=== PATIENT | female | born 1930 | race Caucasian/White ===

== ENCOUNTER 2016-09-16 13:24 | Inpatient (IN) | payer OTHER, BC ==
[~2016-09-16] VITALS: Ht 162.6 cm; Wt 58.7 kg
--- NOTE | ~2016-09-16 | H ---
[facility] [place] [address] HISTORY AND PHYSICAL Name: NOVA MAURICE Room #: 422-P [facility] IN M.R.#: [id number] Admission: 09/16/16 Attend Phys: Thony Del Rio MD Discharge: Date of : 31 Report #: [id number] THIS REPORT FOR: //name// CC: Arsenio Del Rio DATE OF SERVICE: 09/16/2016 DATE OF SERVICE: 09/16/2016 CHIEF COMPLAINT: Abdominal pain. HISTORY OF PRESENT ILLNESS: The patient is an 86-year-old female, who I have actually seen in the past. She reports recent diarrhea and the left lower quadrant abdominal pain. She does have a history of diverticulitis. She does live alone and also has celiac disease. She has been more problems with her pain and diarrhea in the last few days. PAST MEDICAL HISTORY: Significant for: 1. Diverticulitis. 2. Osteoporosis. 3. Depression. 4. Episode of atrial fibrillation. 5. Hypertension. 6. Celiac. 7. DJD. 8. Chronic renal insufficiency. 9. Hypertension. MEDICATIONS: Include losartan 50 mg a day, atenolol 50 mg a day, diltiazem ER 120 mg b.i.d., calcium daily, multivitamin daily, Percocet p.r.n. pain. SOCIAL HISTORY: She is a nonsmoker. She does drink alcohol occasionally. No recreational drugs. REVIEW OF SYSTEMS: CONSTITUTIONAL: No fever or chills. HEENT: No headaches or visual changes. CHEST: No shortness of breath or cough. GASTROINTESTINAL: No nausea, but she does have the abdominal pain. GENITOURINARY: No burning or frequency. PHYSICAL EXAMINATION: VITAL SIGNS: In the ER, blood pressure was 117/82, pulse was 66, respiratory rate 17. She is afebrile. GENERAL: She is awake and alert, in no acute distress. Her mucous membranes [facility] [address] [place] [address] HISTORY AND PHYSICAL Name: NOVA MAURICE Room #: 422-P [facility] IN [facility]#: [id number] Admission: 09/16/16 Attend Phys: Thony Del Rio MD Discharge: Date of : 31 Report #: [id number] are moist. NECK: Supple, without adenopathy, thyromegaly or bruits. CHEST: Clear to auscultation. CARDIOVASCULAR: Regular , no murmur. ABDOMEN: Soft. She is tender in the left lower quadrant. No rebound or guarding. Bowel sounds are active. EXTREMITIES: Show no edema. Pulses are intact. SKIN: Intact. LABORATORY DATA: Sodium 130, potassium 5.0, chloride 95, bicarb 27, BUN 8, creatinine is 1.2, glucose is 84, AST 41, ALT 22, alkaline phosphatase is 89. WBCs 11.0, hemoglobin 9.0, hematocrit 27.7, platelet count 355, 75 segs, 12 lymphs. Urinalysis is negative. CT scan of the abdomen shows diverticulitis, no masses, no perforation. ASSESSMENT: Diverticulitis, administered on IV antibiotics, IV fluids, IV pain meds. PLAN: We will not consult GI at this time. She has will certainly reevaluate if she develops worsening of symptoms. <ELECTRONICALLY SIGNED> By: Thony Del Rio MD 09/17/16 1307 2034 [id number] Thony Del Rio MD /nt
[~2016-09-16 13:24] MED LIST: ADULT LOW DOSE81 MG PO; ARICEPT 5 MG TAB5 MG PO; ARICEPT10 MG PO; ATENOLOL 100MG100 M2 PO; ATENOLOL 100MG100 MG PO; ATENOLOL 25 MG25 M1 PO; ATENOLOL PO; BENICAR; BENICAR HCT 401 EAC1 PO; BENICAR40 MG PO; CALCIUM OYSTER500 MG PO; CELEXA 20 MG TA20 M1 PO; CENTRUM SILVER1 EAC1 PO; CENTRUM SILVER1 EAC4 PO; CIPRO500 MG PO; CIPROFLOXACIN500 M3 PO; COLESTID1 GM PO; COMPAZINE PO; COZAAR 50 MG TA50 M2 PO; DILTIAZEM ER120 M1 PO; FLAGYL500 MG PO; FLOMAX PO; GLUCOSAMINE &1 EAC1 PO; GLUCOSAMINE SU500 MG PO; HM ACETAMINOPH1 EAC1 PO; IRON OR; IRON325 PO; LIBRAX PO; LOMOTIL TABLET1 EACH PO; MOBIC15 MG PO; NATURAL CALCIU500 M1 PO; NORCO 5-325 TA1 EACH PO; OXYBUTYNIN 5 MG5 M1 PO; PERCOCET PO; PHENERGAN 25 MG25 M1 PO; PRADAXA75 MG PO; PREDNISONE 10 M10 M1 PO; PREDNISONE 5 MG5 M1 OR; PREVALITE PACKE1 PKT PO; REMERON15 MG PO; SONATA10 MG PO; TENORMIN PO; TOPROL XL50 MG PO; TRAMADOL 50 MG50 MG PO; TYLENOL P.M. E1 EAC3 PO; ULTRAM 50MG TAB50 MG PO; XARELTO20 MG PO; ZOLOFT 50 MG TA50 M1 PO
[2016-09-16 13:25] VITALS: BP 117/82
[2016-09-16 14:51] LABS: ALBUMIN 2.9 g/dL (3.4-5.0); CALCIUM 8.7 mg/dL (8.5-10.1); CREATININE 1.2 mg/dL (0.6-1.3); TOTAL BILIRUBIN 0.4 mg/dL (<0.1-1.0); TOTAL PROTEIN 6.6 g/dL (6.4-8.2)
[2016-09-16 15:14] LABS: ABSOLUTE NEUTROPHILS 8.3 thou/uL (1.4-8.2); BASOPHILS 0.6 % (0.0-2.0); EOSINOPHILS 0.9 % (0.0-3.0); HEMATOCRIT 27.7 % (37.0-47.0); LYMPHOCYTES 12.6 % (24.0-44.0); MCH 25.8 pg (26.0-34.0); MCHC 32.3 % (28.0-37.0); MCV 79.9 fL (80.0-100.0); MONOCYTES 10.2 % (1.0-8.0); PLATELET COUNT 355 thou/uL (150-400); POLYS 75.7 % (36.0-66.0); RBC 3.47 mil/uL (4.20-5.00)
[2016-09-16 15:16] LABS: MANUAL DIFF NO
[2016-09-16 16:07] LABS: URINE BILIRUBIN NEGATIVE (Negative); URINE BLOOD NEGATIVE (Negative); URINE COLOR YELLOW; URINE GLUCOSE-RANDOM* NEGATIVE (Negative); URINE KETONES NEGATIVE (Negative); URINE LEUKOCYTES-REFLEX NEGATIVE (Negative); URINE PROTEIN (DIPSTICK) NEGATIVE (Negative); URINE UROBILINOGEN 0.2 E.U./dl (0.2-1.0)
[2016-09-16 17:34] VITALS: BP 168/66
[2016-09-16 17:50] VITALS: BP 146/65
[2016-09-16 20:00] VITALS: BP 135/70
[2016-09-17 04:30] VITALS: BP 174/74
[2016-09-17 06:47] LABS: HEMATOCRIT 30.2 % (37.0-47.0); HEMOGLOBIN 9.6 gm/dL (12.0-15.0); MCH 26.1 pg (26.0-34.0); MCV 81.5 fL (80.0-100.0); RBC 3.7 mil/uL (4.20-5.00); RDW 17.7 % (10.5-14.5); WBC 8.4 thou/uL (4.0-11.0)
[2016-09-17 07:05] LABS: CALCIUM 8.4 mg/dL (8.5-10.1)
[2016-09-17 07:39] VITALS: BP 195/76
[2016-09-17 15:48] VITALS: BP 156/75
[2016-09-17 22:00] VITALS: BP 131/62
[2016-09-18 04:44] LABS: HEMATOCRIT 29.3 % (37.0-47.0); HEMOGLOBIN 9.4 gm/dL (12.0-15.0); MCH 26.3 pg (26.0-34.0); MCHC 32.2 % (28.0-37.0); MCV 81.5 fL (80.0-100.0); RBC 3.59 mil/uL (4.20-5.00); WBC 7.9 thou/uL (4.0-11.0)
[2016-09-18 04:50] LABS: CALCIUM 8.6 mg/dL (8.5-10.1); CREATININE 1.1 mg/dL (0.6-1.3); POTASSIUM 4.5 mmol/L (3.5-5.1)
[2016-09-18 05:00] VITALS: BP 166/89
[2016-09-18 08:48] VITALS: BP 131/74
[2016-09-18 14:38] VITALS: BP 131/74
[2016-09-18] MEDS ORDERED: CIPRO500 MG PO (15:26)
[2016-09-18] MEDS ORDERED: FLAGYL500 MG PO (15:26)
[2016-09-18 15:44] VITALS: BP 131/74
== END 2016-09-18 18:14 | disposition home health service (06) | DRG 392 ==
LOC: ER 13:24 → EROBS 16:47 → 4E 16:47
PROVIDERS: Emergency Medicine; Family Medicine
DX: K57.92 Diverticulitis of intestine, part unspecified, without perforation or abscess without bleeding (principal); I48.91 Unspecified atrial fibrillation; M81.0 Age-related osteoporosis without current pathological fracture; F32.9 Major depressive disorder, single episode, unspecified; I12.9 Hypertensive chronic kidney disease with stage 1 through stage 4 chronic kidney disease, or unspecified chronic kidney disease; M17.10 Unilateral primary osteoarthritis, unspecified knee; N18.9 Chronic kidney disease, unspecified; D63.8 Anemia in other chronic diseases classified elsewhere; Z96.653 Presence of artificial knee joint, bilateral; Z98.42 Cataract extraction status, left eye; Z90.49 Acquired absence of other specified parts of digestive tract; Z87.891 Personal history of nicotine dependence; Z87.81 Personal history of (healed) traumatic fracture; Z98.41 Cataract extraction status, right eye; Z90.710 Acquired absence of both cervix and uterus; Z98.890 Other specified postprocedural states; Z88.6 Allergy status to analgesic agent; Z91.02 Food additives allergy status; Z28.21 Immunization not carried out because of patient refusal
CPT/HCPCS: 10183

== ENCOUNTER 2016-09-21 12:15 | Inpatient (IN) | payer OTHER, BC ==
[~2016-09-21] VITALS: Ht 162.6 cm; Wt 59.0 kg
--- NOTE | ~2016-09-21 | D ---
[facility] [place] [address] DISCHARGE SUMMARY Name: JOSAFATNOVA M Room #: 408-P [facility] IN M.R.#: [id number] Admission: 09/21/16 Attend Phys: Cyndy Humphries MD Discharge: 09/23/16 Date of : 31 Report #: [id number] THIS REPORT FOR: //name// CC: Arsenio Humphries DATE OF SERVICE: 09/23/2016 DISCHARGE DIAGNOSES: 1. Acute kidney injury secondary to volume depletion. 2. Loose stool, now resolved. 3. Recent history of acute diverticulitis. 4. Atrial fibrillation. 5. Hyponatremia secondary to above, now improved. 6. Hypertension. CONSULTS: None. PROCEDURES: None. HOSPITAL COURSE: The patient is an 86-year-old female known to me from recent hospitalization at which time she was treated for acute diverticulitis, presented to the ER secondary to weakness and loose stools. Please see details of admission on September 21. The patient was found to be dehydrated with elevated creatinine. She reported having some loose stool in addition to her poor intake. She denied any nausea, vomiting, abdominal pain. She was admitted and started on fluid hydration. Over the course of 22-48 hours, her symptoms improved. Her renal function improved and her sodium also improved. She had no further loose stools as well. It is suspected that by and large she has got poor intake. on discharge. DISCHARGE DISPOSITION: To home. DISCHARGE PHYSICAL EXAMINATION: VITAL SIGNS: Temperature 98, pulse 89, blood pressure ____, O2 sat 98% on room air. GENERAL: She is awake, alert, answering questions appropriately, no acute respiratory distress. HEENT AND NECK: Normocephalic, atraumatic. Neck is supple. Pupils equal. CARDIOVASCULAR: Regular rate and rhythm. No murmurs. LUNGS: Clear to auscultation bilaterally. No crackles or wheeze. ABDOMEN: Soft, no distention or tenderness. EXTREMITIES: No edema. NEUROLOGIC: Nonfocal. The patient will also be going home with home health. DISCHARGE MEDICATIONS: Aspirin 81 daily, atenolol 50 daily, calcium 500 daily, [address] [address] DISCHARGE SUMMARY Name: NOVA MAURCIE Room #: 408-P [facility] IN M.R.#: [id number] Admission: 09/21/16 Attend Phys: Cyndy Humphries MD Discharge: 09/23/16 Date of : 31 Report #: [id number] diltiazem ER 120 b.i.d., Aricept 10 daily, glucosamine chondroitin 1 daily, Cozaar ____, Centrum Silver 1 daily, oxybutynin 5 mg b.i.d., Percocet p.r.n. She will resume her Flagyl and Cipro as previously prescribed. DIET: Regular diet. ACTIVITY: As tolerated. FOLLOWUP: Follow up with primary care in 1 week and again I did encourage her to eat and drink more on a daily basis. <ELECTRONICALLY SIGNED> By: Cyndy Humphries MD 10/14/162009 1137 1341 Cyndy Humphries MD /nt
--- NOTE | ~2016-09-21 | H ---
[facility] [place] [address] HISTORY AND PHYSICAL Name: NOVA MAURICE Julio Room #: 408-P [facility] IN M.R.#: [id number] Admission: 09/21/16 Attend Phys: Cyndy Humphries MD Discharge: 09/23/16 Date of : 31 Report #: [id number] THIS REPORT FOR: //name// CC: Arsenio Fulton PRIMARY DOCTOR: Arsenio Spann DO CHIEF COMPLAINT: Loose stools and weakness. HISTORY OF PRESENT ILLNESS: The patient is an 86-year-old female, recently discharged by myself on the , which was 3 days ago, at which time she was treated for diverticulitis with Cipro and Flagyl, presents back to the ER secondary to loose stools and weakness. She indicates that when left, she was doing fairly well up until this morning. She woke up and has had 5 soft brown stools and has had progressive weakness. She denies any nausea, vomiting, or abdominal pain and overall, her abdominal issues are better except for loose stools that started this morning. She denies any blood or mucous in the stool. She states that this is not watery, but just soft and brown. As stated, she has had 5 episodes this morning. She has also had poor intake despite not having any nausea, vomiting, or pain. She is uncertain as to whether this may be related the antibiotics or not. This morning, she was still weak, the nurse that came to visit her decided to call EMS. Since discharge, she has had home health care services provided by her assisted living. Workup in the ER revealed that she has sodium of 129 and creatinine is elevated at 1.5. On discharge her creatinine was 1.1. She denies any other complaints. She did not have any fever or chills. PAST MEDICAL HISTORY: She has had a history of AFib, on Cardizem, but not on chronic anticoagulation; recent treatment for diverticulitis, osteoporosis, depression, hypertension, celiac disease, degenerative joint disease, chronic renal deficiency, hypertension, daily alcohol intake, and cataracts. PAST SURGICAL HISTORY: She has had bilateral cataract surgery, hysterectomy, appendectomy, ORIF of the left arm, and cholecystectomy. ALLERGIES: To CODEINE, GLUTEN, OXYCODONE, HYDROCODONE, and DARVOCET, reaction unknown. SOCIAL HISTORY: She does not smoke, but drinks alcohol daily, and currently lives in an assisted living, but her son lives close by. REVIEW OF SYSTEMS: A 14-point review of systems was conducted, all negative except for above. CURRENT MEDICATIONS: Include Flagyl, Cipro, losartan 50 mg daily, Cardizem [address] [address] HISTORY AND PHYSICAL Name: NOVA MAURICE Room #: 408-P [facility] IN M.R.#: [id number] Admission: 09/21/16 Attend Phys: Cyndy Humphries MD Discharge: 09/23/16 Date of : 31 Report #: [id number] b.i.d., calcium carbonate, atenolol 50 daily, multivitamin daily, Percocet p.r.n., Aricept 10 daily, aspirin 81 daily, glucosamine chondroitin 1 daily, and oxybutynin 5 mg b.i.d. PHYSICAL EXAMINATION: VITAL SIGNS: Temperature of 97, pulse 62, blood pressure , O2 sat is 96% on room air. GENERAL: She is awake, alert, answering questions appropriately, in no acute respiratory distress. HEENT: Normocephalic, atraumatic. Pupils are equal. Mucous membranes are dry. NECK: Supple. CARDIOVASCULAR: Regular rate and rhythm. No murmurs. LUNGS: Clear to auscultation bilaterally. No crackles or wheezes. ABDOMEN: Soft, no distention or tenderness. EXTREMITIES: No edema. NEUROLOGIC: Nonfocal. LABS AND TESTING: Lactate 2.2. Sodium 129, potassium 5.6, BUN and creatinine 20 and 1.5, total CO2 22. Lipase is 234. LFTs are negative. Chest x-ray was negative. UA was negative. White count of 10, H and H of 10 and 32, MCV 80, and platelets 405. ASSESSMENT AND PLAN: 1. Acute kidney injury secondary to volume depletion with hyponatremia and hypokalemia, was admitted, started on some normal saline, encourage p.o. intake, and minimize stooling if possible. 2. Loose stools. The patient with recent diagnosis of diverticulitis, currently on antibiotics and Flagyl, I doubt this is Clostridium difficile as she is on the Flagyl, we will check it. If negative, we will start her on some anti-motility drugs. 3. Recent acute diverticulitis. Continue Cipro and Flagyl. 4. History of atrial fibrillation. Continue her home medications. She is not on any chronic anticoagulation. 5. Hypertension. Continue same. 6. Question daily alcohol use, we will watch for delirium tremens. 7. Degenerative joint disease. We will continue her home pain medications. 8. Deep venous thrombosis prophylaxis with Lovenox. <ELECTRONICALLY SIGNED> By: Cyndy Humphries MD 10/14/162009 1413 1624 Cyndy Humphries MD /nt
[2016-09-21 12:16] VITALS: BP 127/81
[2016-09-21] MEDS ORDERED: ARICEPT10 MG PO (12:37)
[2016-09-21 12:38] LABS: ABSOLUTE NEUTROPHILS 8.2 thou/uL (1.4-8.2); BASOPHILS 0.8 % (0.0-2.0); EOSINOPHILS 1.8 % (0.0-3.0); HEMOGLOBIN 10.5 gm/dL (12.0-15.0); LYMPHOCYTES 9.1 % (24.0-44.0); MCH 26.3 pg (26.0-34.0); MCHC 32.7 % (28.0-37.0); MCV 80.2 fL (80.0-100.0); MONOCYTES 11.7 % (1.0-8.0); PLATELET COUNT 405 thou/uL (150-400); POLYS 76.6 % (36.0-66.0); RBC 3.99 mil/uL (4.20-5.00); RDW 18.2 % (10.5-14.5); WBC 10.7 thou/uL (4.0-11.0)
[2016-09-21] MEDS ORDERED: ASPIR 8181 MG PO (12:39)
[2016-09-21] MEDS ORDERED: OXYBUTYNIN 5 MG5 M2 PO ×2 (12:40→12:41)
[2016-09-21] MEDS ORDERED: GLUCOSAMINE &1 EAC1 PO (12:41)
[2016-09-21 12:44] LABS: MANUAL DIFF NO
[2016-09-21 12:44] LABS: URINE BILIRUBIN NEGATIVE (Negative); URINE BLOOD NEGATIVE (Negative); URINE COLOR YELLOW; URINE GLUCOSE-RANDOM* NEGATIVE (Negative); URINE KETONES NEGATIVE (Negative); URINE LEUKOCYTES-REFLEX NEGATIVE (Negative); URINE PROTEIN (DIPSTICK) NEGATIVE (Negative); URINE UROBILINOGEN 0.2 E.U./dl (0.2-1.0)
[2016-09-21 12:48] LABS: ANION GAP 11 mmol/L (7-16); BUN 20 mg/dL (7-18); CALCIUM 8.8 mg/dL (8.5-10.1); CHLORIDE 96 mmol/L (98-107); CO2 22 mmol/L (21-32); CREATININE 1.5 mg/dL (0.6-1.3); GLUCOSE 112 mg/dL (70-99); POTASSIUM 5.6 mmol/L (3.5-5.1); SODIUM 129 mmol/L (136-145)
[2016-09-21 12:54] LABS: ALBUMIN 3.2 g/dL (3.4-5.0); ALKALINE PHOSPHATASE 81 U/L (46-116); DIRECT BILIRUBIN < 0.1 mg/dL (<0.1-0.3); SGOT 43 U/L (15-37); SGPT 16 U/L (30-65); TOTAL BILIRUBIN 0.5 mg/dL (<0.1-1.0)
[2016-09-21 16:47] VITALS: BP 148/71
[2016-09-21 17:17] VITALS: BP 151/68
[2016-09-21 18:44] LABS: TROPONIN-I < 0.04 ng/mL (<0.04-0.07)
[2016-09-21 20:02] VITALS: BP 129/75
[2016-09-21 23:20] VITALS: BP 131/68
[2016-09-22 05:00] VITALS: BP 120/54
[2016-09-22 06:46] LABS: HEMATOCRIT 25.7 % (37.0-47.0); MCH 25.9 pg (26.0-34.0); MCHC 32.2 % (28.0-37.0); MCV 80.5 fL (80.0-100.0); RBC 3.19 mil/uL (4.20-5.00); RDW 17.8 % (10.5-14.5); WBC 6.4 thou/uL (4.0-11.0)
[2016-09-22 06:47] LABS: HEMOGLOBIN 8.3 gm/dL (12.0-15.0); MANUAL DIFF YES; PLATELET COUNT 305 thou/uL (150-400)
[2016-09-22 06:59] LABS: CALCIUM 7.8 mg/dL (8.5-10.1); CREATININE 1.3 mg/dL (0.6-1.3)
[2016-09-22 07:01] LABS: POTASSIUM 4.4 mmol/L (3.5-5.1)
[2016-09-22 07:34] VITALS: BP 140/79
[2016-09-22 08:06] LABS: ABSOLUTE NEUTROPHILS 3.5 thou/uL (1.4-8.2); TOTAL CELL COUNT 100
[2016-09-22 08:07] LABS: ANISOCYTOSIS 1+; HYPOCHROMASIA 1+; MICROCYTES 1+; POIKILOCYTOSIS SLIGHT
[2016-09-22 16:55] VITALS: BP 129/64
[2016-09-22 20:00] VITALS: BP 154/65
[2016-09-23 04:25] VITALS: BP 154/57
[2016-09-23 06:23] LABS: HEMATOCRIT 29.2 % (37.0-47.0); HEMOGLOBIN 9.1 gm/dL (12.0-15.0); MCH 25.5 pg (26.0-34.0); MCHC 31.1 % (28.0-37.0); MCV 81.8 fL (80.0-100.0); RBC 3.58 mil/uL (4.20-5.00); RDW 18.4 % (10.5-14.5); WBC 7.4 thou/uL (4.0-11.0)
[2016-09-23 06:46] LABS: CALCIUM 8.2 mg/dL (8.5-10.1); CREATININE 1.1 mg/dL (0.6-1.3); POTASSIUM 4.2 mmol/L (3.5-5.1)
[2016-09-23 08:44] VITALS: BP 111/65
[2016-09-23] MEDS ORDERED: CIPRO500 MG PO (13:08)
[2016-09-23 15:32] VITALS: BP 111/65
== END 2016-09-23 17:00 | disposition home health service (06) | DRG 391 ==
LOC: ER 12:15 → EROBS 13:39 → 4N 13:39 → EROBS 16:45 → 4N 16:54
PROVIDERS: Emergency Medicine; Family Medicine
DX: K57.92 Diverticulitis of intestine, part unspecified, without perforation or abscess without bleeding (principal); N17.0 Acute kidney failure with tubular necrosis; E87.1 Hypo-osmolality and hyponatremia; E86.9 Volume depletion, unspecified; F32.9 Major depressive disorder, single episode, unspecified; M17.10 Unilateral primary osteoarthritis, unspecified knee; I12.9 Hypertensive chronic kidney disease with stage 1 through stage 4 chronic kidney disease, or unspecified chronic kidney disease; E86.0 Dehydration; R19.7 Diarrhea, unspecified; N18.9 Chronic kidney disease, unspecified; M81.0 Age-related osteoporosis without current pathological fracture; Z96.653 Presence of artificial knee joint, bilateral; I48.91 Unspecified atrial fibrillation; Z87.01 Personal history of pneumonia (recurrent); Z90.710 Acquired absence of both cervix and uterus; Z79.2 Long term (current) use of antibiotics; Z87.81 Personal history of (healed) traumatic fracture; Z90.49 Acquired absence of other specified parts of digestive tract; Z79.82 Long term (current) use of aspirin; Z79.899 Other long term (current) drug therapy; Z88.6 Allergy status to analgesic agent; Z88.8 Allergy status to other drugs, medicaments and biological substances; Z79.01 Long term (current) use of anticoagulants; Z98.42 Cataract extraction status, left eye; Z98.41 Cataract extraction status, right eye; Z88.5 Allergy status to narcotic agent; Z23 Encounter for immunization
CPT/HCPCS: 10091

== ENCOUNTER 2016-09-24 07:56 | Emergency (ER) | payer OTHER, BC ==
[~2016-09-24] VITALS: Ht 165.1 cm; Wt 68.0 kg
[~2016-09-24 07:56] MED LIST changes: +ASPIR 8181 MG PO; +OXYBUTYNIN 5 MG5 M2 PO
[2016-09-24 08:47] LABS: ABSOLUTE NEUTROPHILS 5.7 thou/uL (1.4-8.2); EOSINOPHILS 2.4 % (0.0-3.0); HEMATOCRIT 29.8 % (37.0-47.0); HEMOGLOBIN 9.7 gm/dL (12.0-15.0); LYMPHOCYTES 12.4 % (24.0-44.0); MCH 26.1 pg (26.0-34.0); MCHC 32.7 % (28.0-37.0); MCV 79.8 fL (80.0-100.0); MONOCYTES 10.3 % (1.0-8.0); PLATELET COUNT 337 thou/uL (150-400); POLYS 73.9 % (36.0-66.0); RBC 3.73 mil/uL (4.20-5.00); RDW 17.8 % (10.5-14.5); WBC 7.7 thou/uL (4.0-11.0)
[2016-09-24 08:54] LABS: MANUAL DIFF NO
[2016-09-24 08:58] LABS: CALCIUM 8.1 mg/dL (8.5-10.1); CREATININE 1.1 mg/dL (0.6-1.3); POTASSIUM 4.2 mmol/L (3.5-5.1)
[2016-09-24 09:32] LABS: URINE BILIRUBIN NEGATIVE (Negative); URINE BLOOD NEGATIVE (Negative); URINE COLOR YELLOW; URINE GLUCOSE-RANDOM* NEGATIVE (Negative); URINE KETONES NEGATIVE (Negative); URINE NITRITE NEGATIVE (Negative); URINE PROTEIN (DIPSTICK) NEGATIVE (Negative); URINE UROBILINOGEN 0.2 E.U./dl (0.2-1.0)
== END 2016-09-24 11:50 | disposition home or self-care (01) ==
LOC: ER 07:56
PROVIDERS: Emergency Medicine
DX: R53.1 Weakness (principal); M25.50 Pain in unspecified joint; F32.9 Major depressive disorder, single episode, unspecified; F10.99 Alcohol use, unspecified with unspecified alcohol-induced disorder; I10 Essential (primary) hypertension; I48.91 Unspecified atrial fibrillation; Z88.5 Allergy status to narcotic agent; Z88.8 Allergy status to other drugs, medicaments and biological substances; Z87.891 Personal history of nicotine dependence; Z90.710 Acquired absence of both cervix and uterus; Z98.890 Other specified postprocedural states; Z90.49 Acquired absence of other specified parts of digestive tract

== ENCOUNTER 2016-12-22 17:34 | Inpatient (IN) | payer OTHER, BC ==
[~2016-12-22] VITALS: Ht 162.6 cm; Wt 56.7 kg
--- NOTE | ~2016-12-22 | EKG ---
[address] [address] ELECTROCARDIOGRAM REPORT Name: ONVA MAURICE Room #: 537-P ADM IN M.R.#: [id number] Admission: 12/22/16 Attend Phys: Evelina Grover Discharge: Date of : 31 Report #: [id number] THIS REPORT FOR: //name// [facility] ED Test Date: 2016-12-22 Test Time: 18:56:41 Pat Name: NOVA MAURICE Department: Room: 537 Gender: F Rac Specialist: MICHAEL : 1930 Requested By: Ying Allred Order Number: [id number] MD: Faizan Fernández Measurements Intervals [place] Rate: 59 P: SC: QRS: 3 QRSD: 87 T: 14 QT: 404 QTc: 401 Interpretive Statements Atrial fibrillation Nonspecific ST segment abnormality Compared to ECG 10/06/2016 07:03:26 no significant change was found Electronically Signed On 12-23-2016 8:41:17 CDT by Faizan Fernández [email or web address] <ELECTRONICALLY SIGNED> By: Faizan Fernández MD, [facility] 12/23/16 0841 55 55 Faizan Fernández MD, FACC /EPI
[2016-12-22 17:34] VITALS: BP 158/93
[2016-12-22 18:58] LABS: ABSOLUTE NEUTROPHILS 6.9 thou/uL (1.4-8.2); BASOPHILS 0.8 % (0.0-2.0); EOSINOPHILS 1.4 % (0.0-3.0); HEMATOCRIT 28.3 % (37.0-47.0); HEMOGLOBIN 9.5 gm/dL (12.0-15.0); LYMPHOCYTES 15.8 % (24.0-44.0); MCH 26.1 pg (26.0-34.0); MCHC 33.6 g/dL (28.0-37.0); MCV 77.7 fL (80.0-100.0); MONOCYTES 7.6 % (1.0-8.0); PLATELET COUNT 437 thou/uL (150-400); POLYS 74.4 % (36.0-66.0); RBC 3.64 mil/uL (4.20-5.00); RDW 17.4 % (10.5-14.5); WBC 9.3 thou/uL (4.0-11.0)
[2016-12-22 18:59] LABS: MANUAL DIFF NO
[2016-12-22 19:02] LABS: CALCIUM 8.6 mg/dL (8.5-10.1); POTASSIUM 4.4 mmol/L (3.5-5.1)
[2016-12-22 19:14] LABS: MAGNESIUM 1.6 mg/dL (1.8-2.4)
[2016-12-22 21:03] VITALS: BP 141/93
[2016-12-22 21:30] VITALS: BP 154/97
[2016-12-23 04:00] VITALS: BP 148/78
[2016-12-23 06:59] LABS: URINE BILIRUBIN NEGATIVE (Negative); URINE BLOOD NEGATIVE (Negative); URINE COLOR YELLOW; URINE GLUCOSE-RANDOM* NEGATIVE (Negative); URINE KETONES NEGATIVE (Negative); URINE NITRITE NEGATIVE (Negative); URINE PROTEIN (DIPSTICK) NEGATIVE (Negative); URINE SPECIFIC GRAVITY <= 1.005 (1.003-1.035); URINE UROBILINOGEN 0.2 E.U./dl (0.2-1.0)
[2016-12-23 07:27] LABS: TSH 1.124 uIU/mL (0.358-3.740)
[2016-12-23 08:56] VITALS: BP 138/70
[2016-12-23 15:45] VITALS: BP 138/65
[2016-12-23 20:00] VITALS: BP 141/58
[2016-12-24 04:00] VITALS: BP 84/42
[2016-12-24 07:33] VITALS: BP 165/88
[2016-12-24 10:39] LABS: CALCIUM 7.7 mg/dL (8.5-10.1); CREATININE 0.8 mg/dL (0.6-1.0); POTASSIUM 4.1 mmol/L (3.5-5.1)
[2016-12-24 13:43] VITALS: BP 165/88
== END 2016-12-24 13:54 | disposition home health service (06) | DRG 640 ==
LOC: ER 17:34 → 5S 20:05 → EROBS 20:05 → 5S 22:17
PROVIDERS: Emergency Medicine; Hospitalist; Nurse Practitioner
DX: E87.1 Hypo-osmolality and hyponatremia (principal); G93.41 Metabolic encephalopathy; E86.1 Hypovolemia; I10 Essential (primary) hypertension; I48.91 Unspecified atrial fibrillation; M81.0 Age-related osteoporosis without current pathological fracture; M19.90 Unspecified osteoarthritis, unspecified site; D64.9 Anemia, unspecified; M25.552 Pain in left hip; E83.42 Hypomagnesemia; Z96.653 Presence of artificial knee joint, bilateral; Z72.89 Other problems related to lifestyle; Z87.01 Personal history of pneumonia (recurrent); Z98.42 Cataract extraction status, left eye; Z98.41 Cataract extraction status, right eye; Z90.710 Acquired absence of both cervix and uterus; Z90.49 Acquired absence of other specified parts of digestive tract; Z88.8 Allergy status to other drugs, medicaments and biological substances; Z88.6 Allergy status to analgesic agent; Z87.891 Personal history of nicotine dependence; Z79.82 Long term (current) use of aspirin; Z79.899 Other long term (current) drug therapy
CPT/HCPCS: 10785

== ENCOUNTER 2016-12-27 10:55 | Emergency (ER) | payer OTHER, BC ==
[~2016-12-27] VITALS: Ht 162.6 cm; Wt 54.4 kg
--- NOTE | ~2016-12-27 | EKG ---
[address] [place] [address] ELECTROCARDIOGRAM REPORT Name: NOVA MAURICE Room #: [facility]#: [id number] Admission: 12/27/16 Attend Phys: Discharge: 12/27/16 Date of : 31 Report #: [id number] THIS REPORT FOR: //name// [facility] ED Test Date: 2016-12-27 Test Time: 11:29:31 Pat Name: NOVA MAURICE Department: Room: Gender: F Mercury Recoverer: marleni : 1930 Requested By: Dev Reveles Order Number: [id number] MD: Faizan Fernández Measurements Intervals [place] Rate: 69 P: 0 W[place]: 153 QRS: 2 QRSD: 82 T: 21 QT: 391 QTc: 419 Interpretive Statements Atrial fibrillation Poor R-wave progression Compared to ECG 12/22/2016 18:56:41 No significant change was found Electronically Signed On 12-28-2016 15:04:15 CDT by Faizan Fernández [email or web address] <ELECTRONICALLY SIGNED> By: Faizan Fernández MD, [facility] 12/28/16 1504 1129 28 Faizan Fernández MD, FACC /EPI
[2016-12-27] MEDS ORDERED: LIBRAX PO (11:02)
[2016-12-27] MEDS ORDERED: CELEXA20 MG PO (11:03)
[2016-12-27] MEDS ORDERED: MOBIC15 MG PO (11:03)
[2016-12-27] MEDS ORDERED: ATENOLOL 100MG100 MG PO (11:04)
[2016-12-27 11:31] LABS: URINE BILIRUBIN NEGATIVE (Negative); URINE BLOOD NEGATIVE (Negative); URINE GLUCOSE-RANDOM* NEGATIVE (Negative); URINE KETONES NEGATIVE (Negative); URINE LEUKOCYTES-REFLEX NEGATIVE (Negative); URINE PROTEIN (DIPSTICK) NEGATIVE (Negative); URINE UROBILINOGEN 0.2 E.U./dl (0.2-1.0)
[2016-12-27 11:32] LABS: URINE COLOR YELLOW
[2016-12-27 12:04] LABS: ABSOLUTE NEUTROPHILS 7.6 thou/uL (1.4-8.2); BASOPHILS 0.5 % (0.0-2.0); EOSINOPHILS 0.6 % (0.0-3.0); HEMATOCRIT 28.6 % (37.0-47.0); HEMOGLOBIN 9.6 gm/dL (12.0-15.0); LYMPHOCYTES 11.5 % (24.0-44.0); MCH 26.3 pg (26.0-34.0); MCHC 33.5 g/dL (28.0-37.0); MCV 78.6 fL (80.0-100.0); MONOCYTES 6.2 % (1.0-8.0); PLATELET COUNT 450 thou/uL (150-400); POLYS 81.2 % (36.0-66.0); RBC 3.63 mil/uL (4.20-5.00); WBC 9.3 thou/uL (4.0-11.0)
[2016-12-27 12:05] LABS: ANION GAP 7 mmol/L (7-16); BUN 12 mg/dL (7-18); CALCIUM 8.4 mg/dL (8.5-10.1); CHLORIDE 95 mmol/L (98-107); CO2 28 mmol/L (21-32); CREATININE 0.9 mg/dL (0.6-1.0); GLUCOSE 87 mg/dL (74-106); POTASSIUM 4.4 mmol/L (3.5-5.1); SODIUM 130 mmol/L (136-145)
[2016-12-27 12:07] LABS: MANUAL DIFF NO
[2016-12-27 12:13] LABS: TROPONIN-I < 0.04 ng/mL (<0.04-0.07)
== END 2016-12-27 14:00 | disposition home or self-care (01) ==
LOC: ER 10:55
PROVIDERS: Physician Assistant
DX: R53.1 Weakness (principal); G89.29 Other chronic pain; M25.551 Pain in right hip; E87.1 Hypo-osmolality and hyponatremia; I10 Essential (primary) hypertension; I48.91 Unspecified atrial fibrillation; Z98.890 Other specified postprocedural states; Z90.710 Acquired absence of both cervix and uterus; F32.9 Major depressive disorder, single episode, unspecified; Z90.49 Acquired absence of other specified parts of digestive tract; Z87.448 Personal history of other diseases of urinary system; Z88.5 Allergy status to narcotic agent; Z88.8 Allergy status to other drugs, medicaments and biological substances; F17.210 Nicotine dependence, cigarettes, uncomplicated; F10.99 Alcohol use, unspecified with unspecified alcohol-induced disorder

== ENCOUNTER 2017-01-09 04:08 | Inpatient (IN) | payer OTHER, BC ==
[~2017-01-09] VITALS: Ht 162.6 cm; Wt 55.7 kg
--- NOTE | ~2017-01-09 | HC ---
[facility] [place] [address] CONSULTATION Name: JOSAFATNOVA M Room #: 434-P [facility] IN ..#: [id number] Admission: 01/12/17 Attend Phys: Cyndy Humphries MD Discharge: 01/18/17 Date of : 31 Report #: [id number] THIS REPORT FOR: //name// CC: Arsenio Ruffin DATE OF SERVICE: 01/15/2017 HISTORY OF PRESENT ILLNESS: The patient is an 86-year-old white female who was admitted with generalized malaise, initial chest pain, acute mental status changes, confusion. Troponin was negative times 2. She did have hyponatremia with a sodium of 122 and some hyperkalemia with potassium of 5.4. After admission, she had a significant drop in her hemoglobin from 9.5 down to 6.7. She underwent an EGD that revealed 2 posterior bulbar ulcers with adherent clot. She also has portal hypertensive gastropathy appearance that was noted. She has been doing better. Her acute renal insufficiency is improving. Hyperkalemia has resolved. She is being monitored regarding hypertension. We are seeing her in rehabilitation medicine consultation. PAST MEDICAL HISTORY: Includes chronic left hip pain, history of atrial fibrillation, osteoporosis, depression, hypertension, chronic renal insufficiency. There is a note of some dementia. She has had prior bilateral total knee replacements. PAST SURGICAL HISTORY: As delineated above. MEDICATIONS: Please see the full medication listing. ALLERGIES: CODEINE, GLUTEN, and PROPOXYPHENE. SOCIAL HISTORY: Lives at [facility] in an assisted living facility. She indicates it is independent living, but there is additional private duty that assists her. She was noted to be modified independent with a walker premorbidly. HABITS: Past tobacco abuse. There is a note of daily ETOH intake. REVIEW OF SYSTEMS: No current complaints of chest pain, shortness of breath or abdominal discomfort. Did not offer any complaints of headache. She does have the chronic left hip pain, but otherwise no focal extremity pain complaints. PHYSICAL EXAMINATION: GENERAL: An 86-year-old slender white female in no obvious distress. VITAL SIGNS: Last recorded temperature 98.1, pulse 90, respirations 20, blood pressure 135/82. [facility] [address] [place] [address] CONSULTATION Name: NOVA MAURICE Room #: [facility] IN [facility].#: [id number] Admission: 01/12/17 Attend Phys: Cyndy Humphries MD Discharge: 01/18/17 Date of : 31 Report #: [id number] NEUROLOGIC: She is alert. Facies appeared to be symmetric. HEENT: Appeared to be benign. EXTREMITIES: She has functional range of motion of both upper extremities without obvious focal weakness. DTRs are trace to 1. In her lower extremities, there is no focal calf swelling, functional range of motion, strength is grade 4-/5. DTRs are trace to 1. In occupational therapy, she was able to transfer on and off the toilet with the riser. She was able to complete her spencer care and standing walker level with standby assistance. She could pull up the brief without assistance per OT. Her last physical therapy note indicates that she was sit to stand, standby assistance; ambulated standby assistance 50 feet with a front-wheeled walker. This was back on 01/09/2017, however. From a speech therapy perspective, she was noted to have moderate cognitive deficits with mild to moderate memory deficits. ASSESSMENT: An 86-year-old white female with the following problem list: 1. Multifactorial metabolic encephalopathy. 2. Hyponatremia. Sodium has improved to 129. 3. Significant anemia with 2 bulbar ulcers noted on EGD. 4. Hyperkalemia that has improved. 5. Acute renal insufficiency superimposed on chronic kidney disease. 6. Hyponatremia. 7. Hypertension. 8. Mild protein-calorie malnutrition. 9. Alcohol abuse. 10. Depression. 11. Note of some dementia. 12. Chronic left hip pain. PLAN: The patient has actually been discharged from OT. Discussed with case management that is involved with arranging private duty home health care to assist the patient upon returning back to her [facility] apartment. The patient is very motivated to return back there. At this point, we will follow with you, but would anticipate that she can hopefully return directly back to her assisted living facility/independent living facility apartment with additional private duty home health care as is being arranged. Thank you for asking us to assist in this patient's care. <ELECTRONICALLY SIGNED> By: Fabian Mendez MD 01/20/17 1157 1349 0030 Fabian Mendez MD /nt
--- NOTE | ~2017-01-09 | S ---
[facility] [place] [address] SURGICAL PATH RPT PROCEDURE Name: JOSAFATNOVA Room #: 434-P ADM IN M.R.#: [id number] Admission: 01/12/17 Date of : 31 Discharge: Report #: [id number] Path Case #: [id number] PATHOLOGY REPORT COLLECTION DATE: 01/14/2017 RECEIVED DATE: 01/14/2017 SUBMITTING PHYS: Dr. Ariela Laura OTHER PHYS: Dr. Reno Spann SPECIMEN(S) RECEIVED: A.Gastric bx * * * * * * * * * * * * FINAL DIAGNOSIS: Gastric mucosa, rule out H. pylori, endoscopic biopsy: - No significant diagnostic abnormalities present. - Negative for intestinal metaplasia or atrophy. - Negative for Helicobacter pylori. COMMENT: Helicobacter pylori immunohistochemical stain performed on block A1 - negative. PATHOLOGIST: Sanjuanita Niño M.D. REPORT ELECTRONICALLY SIGNED BY: Sanjuanita Niño M.D. DATE/TIME: 01/16/2017 16:34 * * * * * * * * * * * * GROSS PATHOLOGY: Received in formalin labeled "Nova Maurice, gastric biopsy rule out H. pylori," are 2 segments of morales soft tissue measuring 0.5 x 0.5 x 0.3 cm in aggregate dimensions and ranging from 0.2 to 0.3 cm in maximum dimension. The specimen is submitted entirely in cassette A1. (KAH; 01/15/2017) CLINICAL HISTORY: None provided INITIAL CPT CODE(S): A; 16587, 49484 Professional services performed by [facility] at [facility] [address], [place] [address] [facility] [address] [place] [address] SURGICAL PATH RPT PROCEDURE Name: NOVA MAURICE Room #: 434-P ADM IN M.R.#: [id number] Admission: 01/12/17 Date of : 31 Discharge: Report #: [id number] Path Case #: [id number] Technical services performed by [facility] at [address] [place] [address], [facility] [address] [address]. [facility] [address] [place] [address] PHONE: [phone] DIRECTOR: Guido Conklin M.D. * * * END OF REPORT * * *
--- NOTE | ~2017-01-09 | P ---
[facility] [place] [address] PROCEDURE REPORT Name: NOVA MAURICE Room #: 434-P [facility] IN M.R.#: [id number] Admission: 01/12/17 Attend Phys: Reno Ruffin MD Discharge: Date of : 31 Report #: [id number] THIS REPORT FOR: //name// CC: Arsenio Spann DO Reno Ruffin MD DATE OF SERVICE: 01/14/2017 PROCEDURE: EGD with biopsy. PATIENT OF: Dr. Reno Ruffin and Dr. Arsenio Spann. INDICATION FOR PROCEDURE: Evaluate anemia, heme-positive stool. The patient was started on Mobic and aspirin. She was last scoped in late 2015 and is heme positive and anemic and her anemia seems to be worsening. Informed consent for this procedure was obtained prior to the administration of any medication. The risks of the procedure which include bleeding, perforation, infection, complications of sedation and the possibility I could miss something have been explained to the patient and she has indicated her consent by signing. Propofol was slowly titrated before and during this procedure for patient comfort by the anesthesia service. The Mirametrixn upper videoscope was introduced through the upper esophageal sphincter and advanced under direct visualization to the second portion of the duodenum. Findings were noted on withdrawal of the scope. We were almost in the third portion of the duodenum. The second portion of the duodenum appears normal, except for the post-bulbar ulcers times 2. One is approximately 1.5 cm in size and is nonbleeding and white based, without visible vessels. The other was about 1 cm in size and it had a moderate black adherent clot stuck to it. It is not actively bleeding at this time, but certainly could bleed at any time. The duodenal bulb is otherwise erythematous and edematous. Pylorus, normal mucosa except for some mild edema. Antrum, in the antrum, there is a 1 cm deep white-based nonbleeding ulceration. The rest of the antrum appeared normal. Biopsies were obtained from the antrum and the body of the stomach to evaluate for H. pylori. The body of the stomach shows a portal hypertensive gastropathy appearance. Cardia and fundus, normal mucosa. I believe the patient does have a hiatal hernia that is moderate. The scope was withdrawn into the esophagus. The Z-line is located at 37 cm from the incisors. The esophagus appears normal, except for 2 fingers of what may be some Pond's ectopic mucosa, extending up above the Z-line for about 1-2 cm. The more proximal esophageal mucosa appears normal. The scope was withdrawn. The patient went to the recovery area in stable condition. She tolerated the procedure well. [address] [address] PROCEDURE REPORT Name: NOVA MAURICE Room #: 434-P [facility] IN M.R.#: [id number] Admission: 01/12/17 Attend Phys: Reno Ruffin MD Discharge: Date of : 31 Report #: [id number] IMPRESSION: 1. Two kissing post-bulbar ulcers, one with an adherent clot. 2. Deep 1-cm antral ulcer, nonbleeding. 3. Duodenitis. 4. Portal hypertensive gastropathy appearance to the body of the stomach. 5. 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 RECOMMENDATIONS: My recommendations are to await the biopsies. We will continue her on proton pump inhibitors. She can be switched over to oral PPIs. She can be on a clear diet, advanced as tolerated. She will need a repeat EGD in 12 weeks to document ulcer healing. Thank you very much once again for allowing me to participate in her care, Dr. Ruffin and Dr. Spann. <ELECTRONICALLY SIGNED> By: Ariela Laura DO 01/14/17 1558 1250 1414 Ariela Laura DO /nt
--- NOTE | ~2017-01-09 | 2DMMODE ---
[facility] [address] [place] [address] 2 D/M-MODE ECHOCARDIOGRAM Name: NOVA MAURICE Room #: 434-P [facility] IN ..#: [id number] Admission: 01/12/17 Attend Phys: Reno Ruffin, Discharge: Date of : 32 Date of Service: 01/12/17 1518 Report #: [id number] THIS REPORT FOR: //name// APPROVED REPORT Study performed: 01/12/2017 14:02:36 EXAM: Comprehensive 2D, Doppler, and color-flow Echocardiogram Patient Location: Bedside Room #: 434 Blood Pressure: 154/77 mmHg HR: 58 bpm Other Information Study Quality: Good Indications Chest Pain Hypertension/HDD 2D Dimensions RVDd: 32.89 mm LVEF(%): 78.77 (>50%) IVSd: 12.50 (7-11mm) LVOT Diam: 17.36 (18-24mm) LVDd: 45.81 mm PWd: 11.54 (7-11mm) Ascending Ao: 34.62 (22-36mm) LVDs: 24.15 (25-40mm) Aortic Root: 24.48 mm IVC: 19.00 mm Dutta's LVEF: 78.77 % Volumes Left Atrial Volume (Systole) Single Plane 4CH: 122.91 mL Single Plane 2CH: 95.50 mL LA ESV Index: 70.00 mL/m2 Aortic Valve AoV Peak Neptali.: 1.40 m/s AO Peak Gr.: 7.81 mmHg LVOT Max P.56 mmHg LVOT Max V: 1.37 m/s NANCY Vmax: 2.33 cm2 Mitral Valve MV Decel. Time: 207.80 ms [facility] [place] [address] [place] [address] 2 D/M-MODE ECHOCARDIOGRAM Name: MARIA LUZ MAURICEALDLARISSA Kim Room #: 434-P [facility] IN ..#: [id number] Admission: 01/12/17 Attend Phys: Reno Ruffin, Discharge: Date of : 31 Date of Service: 01/12/17 1518 Report #: [id number] E Max Neptali.: 1.11 m/s IVRT: 114.19 ms Pulmonary Valve PV Peak Neptali.: 1.07 m/s PV Peak Gr.: 4.61 mmHg Tricuspid Valve TR Peak Neptali.: 2.36 m/s RAP Estimate: 5.00 mmHg TR Peak Gr.: 22.36 mmHg Left Ventricle The left ventricle is normal size. Regional wall motion is normal. Mild concentric left ventricular hypertrophy. There is no ventricular septal defect visualized. Left ventricular systolic function is hyperdynamic. No left ventricle thrombus noted on this study. LVEF is >70%. This study is not technically sufficient to allow evaluation of the LV diastolic function due to atrial fibrillation. Right Ventricle The right ventricle is normal size. There is normal right ventricular wall thickness. The right ventricular systolic function is normal. Atria Left atrium is dilated. Right atrium is dilated. Aortic Valve The aortic valve is normal in structure. Trace to mild aortic regurgitation. There is no aortic valvular vegetation. There is no aortic valvular stenosis. Mitral Valve The mitral valve is normal in structure. Mild mitral regurgitation. There is no evidence of mitral valve vegetations. No evidence of mitral valve stenosis. There is no evidence of mitral valve prolapse. Tricuspid Valve The tricuspid valve is normal in structure. There is no tricuspid valve stenosis. Mild tricuspid regurgitation. There is no tricuspid valve vegetations. Pulmonic Valve The pulmonary valve is normal in structure. There is no pulmonic valvular stenosis. Trace pulmonic regurgitation. There is no pulmonic valve vegetations. [address] [address] 2 D/M-MODE ECHOCARDIOGRAM Name: NOVA MAURICE Room #: 434-P [facility] IN [facility]#: [id number] Admission: 01/12/17 Attend Phys: Reno Ruffin, Discharge: Date of : 31 Date of Service: 01/12/17 1518 Report #: [id number] Great Vessels The aortic root is normal in size. The ascending aorta is normal in size. IVC is normal in size and collapses >50% with inspiration. The pulmonary artery is normal. Pericardium There is no pericardial effusion. There is no pleural effusion. <Conclusion> The left ventricle is normal size. LVEF is >70%. Left atrium is dilated. The aortic valve is normal in structure. Trace to mild aortic regurgitation. The mitral valve is normal in structure. Mild mitral regurgitation. The tricuspid valve is normal in structure. Mild tricuspid regurgitation. Trace pulmonic regurgitation. <ELECTRONICALLY SIGNED> By: Leonel Sinclair MD 01/12/17 1518 1518 1518 Leonel Sinclair MD /INF
--- NOTE | ~2017-01-09 | EKG ---
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: STEWART : 1930 Requested By: Jonathan Yu Order Number: [id number] MD: Faizan Fernández Measurements Intervals [place] Rate: 76 P: OR: QRS: 10 QRSD: 95 T: 25 QT: 406 QTc: 457 Interpretive Statements Atrial fibrillation Anteroseptal infarct, age indeterminate Compared to ECG 12/27/2016 11:29:31 No significant change was found Electronically Signed On 01-09-2017 8:12:47 CDT by Faizan Fernández [email or web address] <ELECTRONICALLY SIGNED> By: Faizan Fernández MD, [facility] 01/09/17 0812 0419 0419 Faizan Fernández MD, [facility] /EPI
[~2017-01-09 04:08] MED LIST changes: +CELEXA20 MG PO
[2017-01-09 04:09] VITALS: BP 194/88
[2017-01-09] MEDS ORDERED: TRAMADOL 50 MG50 MG PO (04:21)
[2017-01-09] MEDS ORDERED: FLOMAX0.4 MG PO (04:21)
[2017-01-09 04:32] LABS: ABSOLUTE NEUTROPHILS 9.4 thou/uL (1.4-8.2); BASOPHILS 0.7 % (0.0-2.0); EOSINOPHILS 1.2 % (0.0-3.0); HEMATOCRIT 28.9 % (37.0-47.0); HEMOGLOBIN 9.5 gm/dL (12.0-15.0); MCV 78.7 fL (80.0-100.0); MONOCYTES 7.4 % (1.0-8.0); PLATELET COUNT 383 thou/uL (150-400); POLYS 78.7 % (36.0-66.0); RBC 3.67 mil/uL (4.20-5.00); RDW 17.1 % (10.5-14.5); WBC 11.9 thou/uL (4.0-11.0)
[2017-01-09 04:35] LABS: MANUAL DIFF NO
[2017-01-09 04:43] LABS: ANION GAP 8 mmol/L (7-16); BUN 25 mg/dL (7-18); CHLORIDE 92 mmol/L (98-107); CO2 22 mmol/L (21-32); CREATININE 1.3 mg/dL (0.6-1.0); GLUCOSE 90 mg/dL (74-106); POTASSIUM 5.4 mmol/L (3.5-5.1); SODIUM 122 mmol/L (136-145)
[2017-01-09 04:49] LABS: ALBUMIN 3.1 g/dL (3.4-5.0); ALKALINE PHOSPHATASE 78 U/L (46-116); MAGNESIUM 1.7 mg/dL (1.8-2.4); SGOT 30 U/L (15-37); SGPT 17 U/L (30-65); TOTAL BILIRUBIN 0.4 mg/dL (<0.1-1.0); TOTAL PROTEIN 6.4 g/dL (6.4-8.2); TROPONIN-I < 0.04 ng/mL (<0.04-0.07)
[2017-01-09 06:00] VITALS: BP 187/88
[2017-01-09 06:30] VITALS: BP 169/94
[2017-01-09 09:08] LABS: URINE BILIRUBIN NEGATIVE (Negative); URINE BLOOD NEGATIVE (Negative); URINE COLOR YELLOW; URINE GLUCOSE-RANDOM* NEGATIVE (Negative); URINE KETONES NEGATIVE (Negative); URINE LEUKOCYTES-REFLEX NEGATIVE (Negative); URINE PROTEIN (DIPSTICK) NEGATIVE (Negative); URINE UROBILINOGEN 0.2 E.U./dl (0.2-1.0)
[2017-01-09 09:16] LABS: AMP/METHAMP Negative (Negative); BARBITURATES Negative (Negative); BENZODIAZEPINES Negative (Negative); COCAINE Negative (Negative); METHADONE Negative (Negative); OPIATES Negative (Negative); PCP Negative (Negative); THC Negative (Negative)
[2017-01-09 12:00] VITALS: BP 185/89
[2017-01-09 16:00] VITALS: BP 140/85
[2017-01-09 16:57] LABS: CALCIUM 7.7 mg/dL (8.5-10.1); CREATININE 1.1 mg/dL (0.6-1.0); POTASSIUM 4.7 mmol/L (3.5-5.1)
[2017-01-09 19:30] VITALS: BP 127/74
[2017-01-10 03:37] VITALS: BP 131/72
[2017-01-10 05:48] LABS: BASOPHILS 0.5 % (0.0-2.0); EOSINOPHILS 1.6 % (0.0-3.0); HEMATOCRIT 26.6 % (37.0-47.0); LYMPHOCYTES 12.7 % (24.0-44.0); MCH 26.2 pg (26.0-34.0); MCHC 33.7 g/dL (28.0-37.0); MCV 77.7 fL (80.0-100.0); PLATELET COUNT 364 thou/uL (150-400); POLYS 77.2 % (36.0-66.0); RBC 3.42 mil/uL (4.20-5.00); RDW 17.2 % (10.5-14.5); WBC 9.1 thou/uL (4.0-11.0)
[2017-01-10 06:05] LABS: ALBUMIN 2.7 g/dL (3.4-5.0); CALCIUM 7.8 mg/dL (8.5-10.1); CREATININE 0.8 mg/dL (0.6-1.0); MAGNESIUM 1.9 mg/dL (1.8-2.4); MANUAL DIFF NO; POTASSIUM 4.1 mmol/L (3.5-5.1); TOTAL BILIRUBIN 0.4 mg/dL (<0.1-1.0); TOTAL PROTEIN 5.9 g/dL (6.4-8.2)
[2017-01-10 09:12] VITALS: BP 125/76
[2017-01-10 12:00] VITALS: BP 144/92
[2017-01-10 16:00] VITALS: BP 134/87
[2017-01-10 19:32] VITALS: BP 116/60
[2017-01-11 04:57] VITALS: BP 140/70
[2017-01-11 05:54] LABS: HEMATOCRIT 27.2 % (37.0-47.0); HEMOGLOBIN 8.9 gm/dL (12.0-15.0); MCH 25.8 pg (26.0-34.0); MCHC 32.6 g/dL (28.0-37.0); MCV 78.9 fL (80.0-100.0); RBC 3.45 mil/uL (4.20-5.00); RDW 17.2 % (10.5-14.5); WBC 8.9 thou/uL (4.0-11.0)
[2017-01-11 06:05] LABS: CALCIUM 7.8 mg/dL (8.5-10.1); CREATININE 0.9 mg/dL (0.6-1.0); POTASSIUM 4.6 mmol/L (3.5-5.1)
[2017-01-11 08:59] VITALS: BP 139/80
[2017-01-11 12:12] VITALS: BP 82/53
[2017-01-11 15:54] VITALS: BP 109/61
[2017-01-11 19:50] VITALS: BP 144/60
[2017-01-12 03:40] VITALS: BP 139/60
[2017-01-12 06:40] LABS: ANION GAP 7 mmol/L (7-16); BUN 28 mg/dL (7-18); CALCIUM 7.8 mg/dL (8.5-10.1); CHLORIDE 92 mmol/L (98-107); CO2 25 mmol/L (21-32); GLUCOSE 77 mg/dL (74-106); POTASSIUM 5.1 mmol/L (3.5-5.1); SODIUM 124 mmol/L (136-145)
[2017-01-12 08:00] VITALS: BP 154/77
[2017-01-12 13:34] LABS: CHOLESTEROL 102 mg/dL (<200); HDL CHOLESTEROL 56 mg/dL (>40); LDL CHOLESTEROL 40 mg/dL (<100); TC:HDL 1.8 Ratio (Not establshd); TRIGLYCERIDE 33 mg/dL (<150); VLDL 7 mg/dL (<40)
[2017-01-12 16:00] VITALS: BP 127/68
[2017-01-12 20:22] VITALS: BP 128/72
[2017-01-13 05:05] VITALS: BP 132/78
[2017-01-13 06:42] LABS: ABSOLUTE NEUTROPHILS 7.7 thou/uL (1.4-8.2); HEMATOCRIT 20.6 % (37.0-47.0); MCHC 33.2 g/dL (28.0-37.0); MCV 78.4 fL (80.0-100.0); PLATELET COUNT 345 thou/uL (150-400); RBC 2.62 mil/uL (4.20-5.00)
[2017-01-13 06:53] LABS: CALCIUM 7.7 mg/dL (8.5-10.1); CREATININE 0.9 mg/dL (0.6-1.0); MAGNESIUM 1.6 mg/dL (1.8-2.4); POTASSIUM 5.2 mmol/L (3.5-5.1)
[2017-01-13 07:33] LABS: TOTAL CELL COUNT 100
[2017-01-13 07:36] LABS: ANISOCYTOSIS 1+; OVALOCYTES FEW; POLYCHROMASIA OCCASIONAL
[2017-01-13 07:37] LABS: POIKILOCYTOSIS SLIGHT
[2017-01-13 07:47] LABS: MANUAL DIFF NO
[2017-01-13 07:48] LABS: HEMOGLOBIN 6.8 gm/dL (12.0-15.0)
[2017-01-13 08:14] LABS: HEMATOCRIT 20.8 % (37.0-47.0); MCH 25.3 pg (26.0-34.0); MCHC 32.1 g/dL (28.0-37.0); MCV 78.6 fL (80.0-100.0); RBC 2.65 mil/uL (4.20-5.00); RDW 16.8 % (10.5-14.5); WBC 11.2 thou/uL (4.0-11.0)
[2017-01-13 08:27] LABS: HEMOGLOBIN 6.7 gm/dL (12.0-15.0)
[2017-01-13 12:30] VITALS: BP 139/51
[2017-01-13 12:33] VITALS: BP 131/70; BP 139/66
[2017-01-13 12:59] LABS: ALBUMIN 2.4 g/dL (3.4-5.0); ALKALINE PHOSPHATASE 55 U/L (46-116); DIRECT BILIRUBIN < 0.1 mg/dL (<0.1-0.3); SGOT 20 U/L (15-37); SGPT 14 U/L (30-65); TOTAL BILIRUBIN 0.3 mg/dL (<0.1-1.0); TOTAL PROTEIN 5.6 g/dL (6.4-8.2)
[2017-01-13 13:22] LABS: OBSERVED RETIC COUNT 1.78 % (0.6-2.6)
[2017-01-13 13:40] LABS: % SATURATION 9 % (20-39); IRON 21 ug/dL (50-170); TIBC 246 ug/dL (250-450); UIBC 225 ug/dL
[2017-01-13 16:40] VITALS: BP 139/66
[2017-01-13 16:44] VITALS: BP 108/64; BP 139/66; BP 150/67
[2017-01-13 19:33] VITALS: BP 108/64
[2017-01-13 20:57] LABS: HEMATOCRIT 25.8 % (37.0-47.0)
[2017-01-13 20:59] LABS: HEMOGLOBIN 8.7 gm/dL (12.0-15.0)
[2017-01-14 00:33] VITALS: BP 151/68
[2017-01-14 03:30] VITALS: BP 151/68
[2017-01-14 06:23] LABS: ABSOLUTE NEUTROPHILS 5.2 thou/uL (1.4-8.2); BASOPHILS 0.7 % (0.0-2.0); EOSINOPHILS 2.1 % (0.0-3.0); HEMATOCRIT 24.5 % (37.0-47.0); HEMOGLOBIN 8.4 gm/dL (12.0-15.0); LYMPHOCYTES 17.1 % (24.0-44.0); MCH 26.5 pg (26.0-34.0); MCHC 34.2 g/dL (28.0-37.0); MCV 77.4 fL (80.0-100.0); MONOCYTES 8.6 % (1.0-8.0); PLATELET COUNT 326 thou/uL (150-400); POLYS 71.5 % (36.0-66.0); RBC 3.16 mil/uL (4.20-5.00); WBC 7.3 thou/uL (4.0-11.0)
[2017-01-14 06:31] LABS: MANUAL DIFF NO
[2017-01-14 06:50] LABS: CALCIUM 7.8 mg/dL (8.5-10.1); CREATININE 0.8 mg/dL (0.6-1.0); MAGNESIUM 1.9 mg/dL (1.8-2.4); POTASSIUM 4.6 mmol/L (3.5-5.1)
[2017-01-14 08:00] VITALS: BP 151/80
[2017-01-14 15:37] VITALS: BP 124/65
[2017-01-14 19:15] VITALS: BP 131/62
[2017-01-14 20:23] LABS: HEMATOCRIT 23.5 % (37.0-47.0); HEMOGLOBIN 8.3 gm/dL (12.0-15.0)
[2017-01-15 06:26] LABS: ABSOLUTE NEUTROPHILS 6.6 thou/uL (1.4-8.2); BASOPHILS 0.7 % (0.0-2.0); EOSINOPHILS 1.8 % (0.0-3.0); HEMATOCRIT 23.4 % (37.0-47.0); HEMOGLOBIN 7.9 gm/dL (12.0-15.0); LYMPHOCYTES 13.1 % (24.0-44.0); MANUAL DIFF NO; MCH 26.4 pg (26.0-34.0); MCHC 33.7 g/dL (28.0-37.0); MCV 78.4 fL (80.0-100.0); MONOCYTES 7.8 % (1.0-8.0); PLATELET COUNT 325 thou/uL (150-400); POLYS 76.6 % (36.0-66.0); RBC 2.99 mil/uL (4.20-5.00); RDW 18.5 % (10.5-14.5); WBC 8.6 thou/uL (4.0-11.0)
[2017-01-15 06:42] LABS: CALCIUM 8.1 mg/dL (8.5-10.1); CREATININE 0.7 mg/dL (0.6-1.0); POTASSIUM 4.7 mmol/L (3.5-5.1)
[2017-01-15 08:00] VITALS: BP 135/82
[2017-01-15 16:00] VITALS: BP 126/72
[2017-01-15 20:00] VITALS: BP 138/76
[2017-01-16 03:54] VITALS: BP 149/60
[2017-01-16 06:29] LABS: HEMATOCRIT 22.3 % (37.0-47.0); HEMOGLOBIN 7.6 gm/dL (12.0-15.0); MCH 26.5 pg (26.0-34.0); MCV 78.1 fL (80.0-100.0); RBC 2.85 mil/uL (4.20-5.00); RDW 18.4 % (10.5-14.5)
[2017-01-16 06:40] LABS: CREATININE 0.8 mg/dL (0.6-1.0); POTASSIUM 4.1 mmol/L (3.5-5.1)
[2017-01-16 08:00] VITALS: BP 147/70
[2017-01-16 16:00] VITALS: BP 136/75
[2017-01-16 19:31] VITALS: BP 148/73
[2017-01-17 02:30] VITALS: BP 155/76
[2017-01-17 06:33] LABS: HEMATOCRIT 22.1 % (37.0-47.0); HEMOGLOBIN 7.5 gm/dL (12.0-15.0); MCH 26.5 pg (26.0-34.0); MCHC 33.7 g/dL (28.0-37.0); MCV 78.7 fL (80.0-100.0); RBC 2.81 mil/uL (4.20-5.00); RDW 18.8 % (10.5-14.5); WBC 5.8 thou/uL (4.0-11.0)
[2017-01-17 06:49] LABS: CALCIUM 7.9 mg/dL (8.5-10.1); CREATININE 0.7 mg/dL (0.6-1.0); POTASSIUM 3.8 mmol/L (3.5-5.1)
[2017-01-17 08:00] VITALS: BP 151/88
[2017-01-17 15:23] VITALS: BP 141/65
[2017-01-17 19:34] VITALS: BP 137/61
[2017-01-18 03:19] VITALS: BP 153/70
[2017-01-18 05:57] LABS: HEMATOCRIT 22.1 % (37.0-47.0); HEMOGLOBIN 7.4 gm/dL (12.0-15.0); MCH 26.8 pg (26.0-34.0); MCHC 33.5 g/dL (28.0-37.0); RBC 2.76 mil/uL (4.20-5.00); RDW 18.9 % (10.5-14.5); WBC 6.1 thou/uL (4.0-11.0)
[2017-01-18 06:13] LABS: ALBUMIN 2.3 g/dL (3.4-5.0); CALCIUM 7.9 mg/dL (8.5-10.1); CREATININE 0.7 mg/dL (0.6-1.0); TOTAL BILIRUBIN 0.3 mg/dL (<0.1-1.0); TOTAL PROTEIN 5.4 g/dL (6.4-8.2)
[2017-01-18 08:00] VITALS: BP 158/92
[2017-01-18] MEDS ORDERED: PROTONIX40 M1 PO (09:59)
== END 2017-01-18 14:40 | DRG 377 ==
LOC: ER 04:08 → EROBS 05:05 → 4S 06:08
PROVIDERS: Emergency Medicine; Family Medicine; Hospitalist; Internal Medicine; Internal Medicine Endocrinology, Diabetes & Metabolism; Internal Medicine Gastroenterology; Nurse Practitioner; Nurse Practitioner Adult Health
PROC: 30233N1 Transfusion of Nonautologous Red Blood Cells into Peripheral Vein, Percutaneous Approach (ICD-10-PCS; 2017-01-13)
PROC: 0DB68ZX Excision of Stomach, Via Natural or Artificial Opening Endoscopic, Diagnostic (ICD-10-PCS; principal; 2017-01-14)
DX: K92.2 Gastrointestinal hemorrhage, unspecified (principal); G93.41 Metabolic encephalopathy; N17.9 Acute kidney failure, unspecified; E87.1 Hypo-osmolality and hyponatremia; I16.1 Hypertensive emergency; K76.6 Portal hypertension; E44.1 Mild protein-calorie malnutrition; Z96.653 Presence of artificial knee joint, bilateral; I48.91 Unspecified atrial fibrillation; G89.29 Other chronic pain; M25.552 Pain in left hip; H91.90 Unspecified hearing loss, unspecified ear; M81.0 Age-related osteoporosis without current pathological fracture; F32.9 Major depressive disorder, single episode, unspecified; F03.90 Unspecified dementia, unspecified severity, without behavioral disturbance, psychotic disturbance, mood disturbance, and anxiety; E87.5 Hyperkalemia; N18.9 Chronic kidney disease, unspecified; I12.9 Hypertensive chronic kidney disease with stage 1 through stage 4 chronic kidney disease, or unspecified chronic kidney disease; E83.42 Hypomagnesemia; D64.9 Anemia, unspecified; F10.10 Alcohol abuse, uncomplicated; K29.80 Duodenitis without bleeding; M19.90 Unspecified osteoarthritis, unspecified site; K31.89 Other diseases of stomach and duodenum; K25.9 Gastric ulcer, unspecified as acute or chronic, without hemorrhage or perforation; I08.8 Other rheumatic multiple valve diseases; E87.8 Other disorders of electrolyte and fluid balance, not elsewhere classified; G47.00 Insomnia, unspecified; K26.9 Duodenal ulcer, unspecified as acute or chronic, without hemorrhage or perforation; Z68.21 Body mass index [BMI] 21.0-21.9, adult; Z87.01 Personal history of pneumonia (recurrent); Z98.42 Cataract extraction status, left eye; Z87.81 Personal history of (healed) traumatic fracture; Z88.6 Allergy status to analgesic agent; Z88.8 Allergy status to other drugs, medicaments and biological substances; Z87.891 Personal history of nicotine dependence; Z98.41 Cataract extraction status, right eye; Z90.710 Acquired absence of both cervix and uterus; Z90.49 Acquired absence of other specified parts of digestive tract; Z87.440 Personal history of urinary (tract) infections

== ENCOUNTER 2017-02-16 11:16 | Inpatient (IN) | payer OTHER, BC ==
[~2017-02-16] VITALS: Ht 162.6 cm; Wt 53.5 kg
--- NOTE | ~2017-02-16 | EKG ---
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: Brisa HOFFMAN : 1930 Requested By: Yadiel Tamez Order Number: [id number] MD: Art Banegas Measurements Intervals [place] Rate: 60 P: MD: QRS: 16 QRSD: 88 T: 14 QT: 427 QTc: 427 Interpretive Statements Atrial fibrillation Left ventricular hypertrophy Probable anterior infarct, age indeterminate Baseline wander in lead(s) V4 Compared to ECG 01/09/2017 04:19:51 Left ventricular hypertrophy now present Myocardial infarct finding still present Electronically Signed On 02-16-2017 18:04:52 CDT by Art Banegas [email or web address] <ELECTRONICALLY SIGNED> By: Art Banegas MD 02/16/17 1804 1136 1136 Art Banegas MD /EPI
--- NOTE | ~2017-02-16 | HC ---
[facility] [place] [address] [place] [address] CONSULTATION Name: NOVA MAURICE Room #: 545-P ADM IN M.R.#: [id number] Admission: 02/16/17 Attend Phys: Arsenio Contreras DO Discharge: Date of : 31 Report #: [id number] THIS REPORT FOR: //name// CC: Arsenio Contreras DATE OF SERVICE: 02/17/2017 REASON FOR CONSULTATION: Hypokalemia. HISTORY OF PRESENT ILLNESS: This 86-year-old female is a very poor historian. She has been admitted to [facility] on several prior occasions and has documented episodic hyponatremia dating back as far as 07/2006. Early in her course through the 1985-9361 timeframe, her sodium was able to be normalized, but more recently, she has persistent depression of her serum sodium values. Her lowest recorded serum sodium value is a current admission value of 116. The patient has grown increasingly weak at home and was admitted for confusion. She had been found by visitor at her assisted living facility stating that her "mind is not working at all." PAST MEDICAL HISTORY: Remarkable for remote skull fracture 1944. She has a history of previous left ear surgery. She has longstanding hypertension. She has undergone previous bilateral total knee replacement. She has a history of paroxysmal atrial fibrillation of greater than 10 years duration. PAST SURGICAL HISTORY: She is status post previous hysterectomy, appendectomy and knee replacement as described above. She has undergone previous cholecystectomy. MEDICATIONS ON ADMISSION: Include atenolol, diltiazem, calcium, Centrum, Aricept, glucosamine, oxybutynin, Librax, Cozaar and aspirin. PERSONAL AND SOCIAL HISTORY: The patient does not smoke or use alcohol at this time. REVIEW OF SYSTEMS: Remarkable for the absence of peripheral edema. She denies rash. She denies adenopathy. She denies shortness of breath, productive cough, hemoptysis, chest pain, nausea, vomiting or diarrhea. PHYSICAL EXAMINATION: GENERAL: Reveals a well developed, chronically ill, debilitated female, appearing her stated age, in no acute distress. VITAL SIGNS: Blood pressure 161/94, temperature 36.8, pulse 76, respirations 16. [facility] [address] [place] [address] CONSULTATION Name: NOVA MAURICE Room #: 545-P [facility] IN [facility].#: [id number] Admission: 02/16/17 Attend Phys: Arsenio Contreras DO Discharge: Date of : 31 Report #: [id number] SKIN: Warm and dry without rash or erythema. There is no clubbing, cyanosis, edema or adenopathy. HEENT: The head is normocephalic and atraumatic. The sclerae are white and the conjunctivae are not injected. The pharynx is benign. NECK: Supple. LUNGS: Farias are grossly clear to percussion and auscultation. CARDIOVASCULAR: Reveals a regular rate and rhythm without gross murmur or rub. ABDOMEN: Soft and nontender, without palpable mass or organomegaly. NEUROLOGIC: Reveals the patient to be confused and a poor historian but with a nonfocal examination. LABORATORY STUDIES: Available at the time of consultation include sodium 119, potassium 3.8, chloride 86, CO2 23, BUN 8, creatinine 0.7, magnesium 1.5. White blood cell count 6500, hemoglobin 10.1, hematocrit 29.6, platelet count 219,000. Urine studies are not available at the time of consultation. ASSESSMENT: 1. Recurrent hyponatremia of at least 10 years' duration. 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 She appears rather malnourished. The hyponatremia is aggravated by poor oral intake with continued fluid intake. At this time, we will obtain urine studies to include osmolality, sodium, creatinine and protein. I will initiate an oral fluid restriction. We will attempt to improve her overall dietary/nutritional status. 2. Hypomagnesemia for replacement. 3. Dementia with acute altered mental status compounded by hyponatremia. PLAN: As outlined above. Please see orders. <ELECTRONICALLY SIGNED> By: Jori Aguirre MD 02/19/17 1001 1137 1243 Jori Aguirre MD /nt
[2017-02-16 11:16] VITALS: BP 173/94
[~2017-02-16 11:16] MED LIST changes: +FLOMAX0.4 MG PO; +PROTONIX40 M1 PO
[2017-02-16 11:47] LABS: ABSOLUTE NEUTROPHILS 6.7 thou/uL (1.4-8.2); BASOPHILS 0.6 % (0.0-2.0); EOSINOPHILS 0.2 % (0.0-3.0); HEMATOCRIT 29.6 % (37.0-47.0); HEMOGLOBIN 9.8 gm/dL (12.0-15.0); LYMPHOCYTES 11.9 % (24.0-44.0); MCH 27.2 pg (26.0-34.0); MCHC 33.2 g/dL (28.0-37.0); PLATELET COUNT 255 thou/uL (150-400); POLYS 80.3 % (36.0-66.0); RBC 3.61 mil/uL (4.20-5.00); RDW 19.9 % (10.5-14.5); WBC 8.3 thou/uL (4.0-11.0)
[2017-02-16 11:49] LABS: URINE BILIRUBIN NEGATIVE (Negative); URINE BLOOD NEGATIVE (Negative); URINE COLOR YELLOW; URINE GLUCOSE-RANDOM* NEGATIVE (Negative); URINE KETONES NEGATIVE (Negative); URINE NITRITE NEGATIVE (Negative); URINE PROTEIN (DIPSTICK) 2+ (Negative); URINE UROBILINOGEN 0.2 E.U./dl (0.2-1.0)
[2017-02-16 11:52] LABS: ANION GAP 9 mmol/L (7-16); BUN 11 mg/dL (7-18); CALCIUM 8.6 mg/dL (8.5-10.1); CHLORIDE 89 mmol/L (98-107); CO2 23 mmol/L (21-32); CREATININE 0.8 mg/dL (0.6-1.0); GLUCOSE 110 mg/dL (74-106); MANUAL DIFF NO; POTASSIUM 4.1 mmol/L (3.5-5.1); SODIUM 121 mmol/L (136-145)
[2017-02-16 12:01] LABS: ALBUMIN 3.7 g/dL (3.4-5.0); ALKALINE PHOSPHATASE 66 U/L (46-116); MAGNESIUM 1.6 mg/dL (1.8-2.4); SGOT 24 U/L (15-37); SGPT 17 U/L (30-65); TOTAL BILIRUBIN 0.5 mg/dL (<0.1-1.0); TOTAL PROTEIN 6.9 g/dL (6.4-8.2); TROPONIN-I < 0.04 ng/mL (<0.04-0.07)
[2017-02-16 12:02] LABS: AMP/METHAMP Negative (Negative); BARBITURATES Negative (Negative); BENZODIAZEPINES POSITIVE (Negative); COCAINE Negative (Negative); METHADONE Negative (Negative); OPIATES Negative (Negative); PCP Negative (Negative); THC Negative (Negative)
[2017-02-16] MEDS ORDERED: COZAAR 50 MG TA50 M2 PO (12:04)
[2017-02-16] MEDS ORDERED: ASPIR 8181 M1 PO (12:04)
[2017-02-16 12:07] LABS: CASTS None Seen /LPF (None Seen); SQUAMOUS 0-3 Few /LPF (0-3)
[2017-02-16 12:08] LABS: BACTERIA 1-9 Few /HPF (None Seen); CRYSTALS None Seen /LPF (None Seen); URINE RBC 0-2 Rare /HPF (0-2); URINE WBC 0-5 Rare /HPF (0-5)
[2017-02-16 14:10] VITALS: BP 179/88
[2017-02-16 15:45] VITALS: BP 152/55
[2017-02-16 20:00] VITALS: BP 158/83
[2017-02-17 03:06] VITALS: BP 167/83
[2017-02-17 04:04] LABS: ABSOLUTE NEUTROPHILS 4.7 thou/uL (1.4-8.2); BASOPHILS 0.4 % (0.0-2.0); EOSINOPHILS 0.4 % (0.0-3.0); HEMATOCRIT 29.6 % (37.0-47.0); HEMOGLOBIN 10.1 gm/dL (12.0-15.0); LYMPHOCYTES 17.3 % (24.0-44.0); MCH 27.9 pg (26.0-34.0); MCHC 34.2 g/dL (28.0-37.0); MCV 81.5 fL (80.0-100.0); PLATELET COUNT 219 thou/uL (150-400); POLYS 72.9 % (36.0-66.0); RBC 3.62 mil/uL (4.20-5.00); RDW 19.3 % (10.5-14.5); WBC 6.5 thou/uL (4.0-11.0)
[2017-02-17 04:09] LABS: CALCIUM 8.2 mg/dL (8.5-10.1); CREATININE 0.7 mg/dL (0.6-1.0); MAGNESIUM 1.5 mg/dL (1.8-2.4); POTASSIUM 3.8 mmol/L (3.5-5.1)
[2017-02-17 04:16] LABS: MANUAL DIFF NO
[2017-02-17 07:30] VITALS: BP 158/91
[2017-02-17 11:55] VITALS: BP 161/94
[2017-02-17 15:12] LABS: CALCIUM 8.8 mg/dL (8.5-10.1); CREATININE 0.7 mg/dL (0.6-1.0); POTASSIUM 3.6 mmol/L (3.5-5.1)
[2017-02-17 15:58] VITALS: BP 156/98
[2017-02-17 19:47] VITALS: BP 160/89
[2017-02-18 03:29] VITALS: BP 133/78
[2017-02-18 05:42] LABS: HEMATOCRIT 33.1 % (37.0-47.0); HEMOGLOBIN 11.1 gm/dL (12.0-15.0); MCH 26.9 pg (26.0-34.0); MCHC 33.5 g/dL (28.0-37.0); MCV 80.3 fL (80.0-100.0); PLATELET COUNT 286 thou/uL (150-400); RBC 4.12 mil/uL (4.20-5.00); RDW 19.7 % (10.5-14.5); WBC 14.4 thou/uL (4.0-11.0)
[2017-02-18 05:51] LABS: MANUAL DIFF YES
[2017-02-18 05:59] LABS: CALCIUM 8.4 mg/dL (8.5-10.1); CREATININE 0.9 mg/dL (0.6-1.0); POTASSIUM 3.9 mmol/L (3.5-5.1)
[2017-02-18 08:00] VITALS: BP 137/79
[2017-02-18 08:06] LABS: ANISOCYTOSIS 2+; TOTAL CELL COUNT 100
[2017-02-18 08:08] LABS: BURR CELLS FEW
[2017-02-18 11:42] LABS: % SATURATION 9 % (20-39); IRON 28 ug/dL (50-170); TIBC 327 ug/dL (250-450); UIBC 299 ug/dL
[2017-02-18 20:00] VITALS: BP 152/82
[2017-02-19 04:00] VITALS: BP 129/50
[2017-02-19 05:58] LABS: HEMATOCRIT 32.4 % (37.0-47.0); HEMOGLOBIN 10.8 gm/dL (12.0-15.0); MCH 26.9 pg (26.0-34.0); MCHC 33.2 g/dL (28.0-37.0); PLATELET COUNT 255 thou/uL (150-400); RDW 19.8 % (10.5-14.5); WBC 14.4 thou/uL (4.0-11.0)
[2017-02-19 06:05] LABS: MANUAL DIFF YES
[2017-02-19 06:07] LABS: ALBUMIN 3.5 g/dL (3.4-5.0); CALCIUM 8.2 mg/dL (8.5-10.1); CREATININE 0.8 mg/dL (0.6-1.0); MAGNESIUM 2.2 mg/dL (1.8-2.4); PHOSPHORUS 3.4 mg/dL (2.5-4.9); POTASSIUM 4.7 mmol/L (3.5-5.1)
[2017-02-19 07:52] LABS: ABSOLUTE NEUTROPHILS 12.5 thou/uL (1.4-8.2); TOTAL CELL COUNT 100
[2017-02-19 07:53] LABS: ANISOCYTOSIS 2+
[2017-02-19 07:55] VITALS: BP 138/84
[2017-02-19 12:17] LABS: URINE CREATININE-RANDOM* 70.3 mg/dL
[2017-02-19 15:55] VITALS: BP 161/71
[2017-02-20 04:54] VITALS: BP 160/84
[2017-02-20 06:21] LABS: HEMOGLOBIN 10.8 gm/dL (12.0-15.0); MCH 27.1 pg (26.0-34.0); MCHC 32.8 g/dL (28.0-37.0); MCV 82.7 fL (80.0-100.0); PLATELET COUNT 246 thou/uL (150-400); RDW 20.1 % (10.5-14.5); WBC 14.1 thou/uL (4.0-11.0)
[2017-02-20 06:24] LABS: MANUAL DIFF YES
[2017-02-20 06:37] LABS: CALCIUM 8.4 mg/dL (8.5-10.1); CREATININE 0.8 mg/dL (0.6-1.0); POTASSIUM 4.7 mmol/L (3.5-5.1)
[2017-02-20 07:22] LABS: TOTAL CELL COUNT 100
[2017-02-20 07:23] LABS: ANISOCYTOSIS 2+; MICROCYTES 1+
[2017-02-20] MEDS ORDERED: PLAVIX 75 MG TA75 M1 PO (11:16)
[2017-02-20] MEDS ORDERED: CHLORDIAZEPOXI1 EAC1 PO (11:16)
== END 2017-02-20 14:05 | DRG 640 ==
LOC: ER 11:16 → 5S 12:57 → EROBS 12:57 → 5S 14:15
PROVIDERS: Emergency Medicine; Family Medicine
DX: E87.1 Hypo-osmolality and hyponatremia (principal); G93.41 Metabolic encephalopathy; H80.92 Unspecified otosclerosis, left ear; Z96.653 Presence of artificial knee joint, bilateral; I48.91 Unspecified atrial fibrillation; M81.0 Age-related osteoporosis without current pathological fracture; F32.9 Major depressive disorder, single episode, unspecified; M19.90 Unspecified osteoarthritis, unspecified site; H91.90 Unspecified hearing loss, unspecified ear; F03.90 Unspecified dementia, unspecified severity, without behavioral disturbance, psychotic disturbance, mood disturbance, and anxiety; I11.9 Hypertensive heart disease without heart failure; E83.42 Hypomagnesemia; Z79.82 Long term (current) use of aspirin; Z79.899 Other long term (current) drug therapy; Z87.81 Personal history of (healed) traumatic fracture; Z87.01 Personal history of pneumonia (recurrent); Z98.42 Cataract extraction status, left eye; Z98.41 Cataract extraction status, right eye; Z90.710 Acquired absence of both cervix and uterus; Z87.891 Personal history of nicotine dependence; Z90.49 Acquired absence of other specified parts of digestive tract; Z88.8 Allergy status to other drugs, medicaments and biological substances
CPT/HCPCS: 10086

== ENCOUNTER 2017-05-22 18:16 | Inpatient (IN) | payer OTHER, BC ==
[~2017-05-22] VITALS: Ht 162.6 cm; Wt 56.5 kg
--- NOTE | ~2017-05-22 | EKG ---
[address] [address] ELECTROCARDIOGRAM REPORT Name: NOVA MAURICE Room #: 239-P ADM IN M.R.#: [id number] Admission: 05/22/17 Attend Phys: Lobo Arroyo MD Discharge: Date of : 31 Report #: [id number] THIS REPORT FOR: //name// [facility] ED Test Date: 2017-05-22 Test Time: 18:18:04 Pat Name: NOVA MAURICE Department: Room: 239 Gender: F Double Surface Operator: [id number] : 1930 Requested By: Urszula Posada Order Number: [id number] MD: Faizan Fernández Measurements Intervals [place] Rate: 95 P: SD: QRS: 16 QRSD: 81 T: 29 QT: 377 QTc: 474 Interpretive Statements Atrial fibrillation Probable LVH with secondary repol abnrm Compared to ECG 02/16/2017 11:36:23 Anterior Q waves are no longer present Electronically Signed On 05-24-2017 13:30:33 CDT by Faizan Fernández [email or web address] <ELECTRONICALLY SIGNED> By: Faizan Fernández MD, [facility] 05/24/17 1330 1818 17 Faizan Fernández MD, [facility] /EPI
--- NOTE | ~2017-05-22 | P ---
[facility] [place] [address] [place] [address] PROCEDURE REPORT Name: JOSAFATNOVA M Room #: 239-P [facility] IN M.R.#: [id number] Admission: 05/22/17 Attend Phys: Lobo Arroyo MD Discharge: Date of : 31 Report #: [id number] THIS REPORT FOR: //name// CC: Arsenio Arroyo PROCEDURE: EGD. INDICATIONS: 1. Severe anemia. 2. Melena. MEDICATIONS: MAC with IV propofol under the direction of anesthesiology. POST-PROCEDURE FINDINGS: 1. Mild grade 1 distal esophagitis. 2. 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 3. Moderate gastropathy with 2 small ulcers, proximal antrum with no stigmata of recent hemorrhage. 4. Mild flattening of the mucosa in duodenal bulb. 5. No old or new blood within the upper GI tract at this time. DESCRIPTION OF PROCEDURE: The potential risks and benefits of upper endoscopy were reviewed in detail with the patient prior to the procedure. Informed consent was obtained. Following intravenous sedation with incremental dosages of IV propofol under the direction of anesthesiology, the upper endoscope was inserted into the esophagus under direct vision and advanced. The esophagus was mildly tortuous with irregular squamocolumnar junction at 40 cm from the incisors with 1 erosion extending proximally. She had apparent short segment Pond's esophagus at 39-40 cm and a small sliding hiatal hernia. The stomach was inspected in an antegrade and retrograde manner with 2 ulcers in the proximal antrum at the level of the incisura with no stigmata of recent hemorrhage. The pylorus was easily intubated and duodenal bulb, duodenal sweep were examined with mild flattening of the mucosa in the duodenal bulb. No old or new blood was present within the upper GI tract at this time. RECOMMENDATIONS: 1. Hold Plavix. 2. Continue PPI. 3. Advance to clear liquids. 4. Monitor H and H. By: 0933 1000 Sinan Gonzalez MD /nt
[~2017-05-22 18:16] MED LIST changes: +ASPIR 8181 M1 PO; +CHLORDIAZEPOXI1 EAC1 PO; +PLAVIX 75 MG TA75 M1 PO
[2017-05-22 18:17] VITALS: BP 98/46
[2017-05-22 18:54] LABS: HEMOGLOBIN 8.4 gm/dL (12.0-15.0); MCH 26.7 pg (26.0-34.0); MCHC 32.2 g/dL (28.0-37.0); MCV 82.8 fL (80.0-100.0); PLATELET COUNT 277 thou/uL (150-400); RBC 3.14 mil/uL (4.20-5.00); RDW 16.2 % (10.5-14.5); WBC 13.5 thou/uL (4.0-11.0)
[2017-05-22 19:00] LABS: MANUAL DIFF YES
[2017-05-22 19:02] LABS: ANION GAP 14 mmol/L (7-16); BUN 107 mg/dL (7-18); CALCIUM 8.8 mg/dL (8.5-10.1); CHLORIDE 100 mmol/L (98-107); CO2 20 mmol/L (21-32); CREATININE 1.9 mg/dL (0.6-1.0); GLUCOSE 156 mg/dL (74-106); POTASSIUM 5.3 mmol/L (3.5-5.1); SODIUM 134 mmol/L (136-145)
[2017-05-22 19:10] LABS: ALBUMIN 3.1 g/dL (3.4-5.0); ALKALINE PHOSPHATASE 66 U/L (46-116); SGOT 26 U/L (15-37); SGPT 23 U/L (30-65); TOTAL BILIRUBIN 0.4 mg/dL (<0.1-1.0); TOTAL PROTEIN 6.3 g/dL (6.4-8.2); TROPONIN-I < 0.04 ng/mL (<0.04-0.07)
[2017-05-22 19:40] LABS: ABSOLUTE NEUTROPHILS 12.2 thou/uL (1.4-8.2); TOTAL CELL COUNT 100
[2017-05-22 19:41] LABS: ANISOCYTOSIS 2+; HYPOCHROMASIA 1+; POLYCHROMASIA OCCASIONAL
[2017-05-22 20:19] LABS: URINE BILIRUBIN NEGATIVE (Negative); URINE BLOOD NEGATIVE (Negative); URINE COLOR YELLOW; URINE GLUCOSE-RANDOM* NEGATIVE (Negative); URINE KETONES NEGATIVE (Negative); URINE NITRITE NEGATIVE (Negative); URINE PROTEIN (DIPSTICK) NEGATIVE (Negative); URINE UROBILINOGEN 0.2 E.U./dl (0.2-1.0)
[2017-05-22 21:45] VITALS: BP 121/70
[2017-05-22 22:00] VITALS: BP 118/65
[2017-05-22 23:00] VITALS: BP 136/69
[2017-05-23] VITALS (34 sets, daily range): BP systolic 98–165; BP diastolic 55–131
[2017-05-23 06:24] LABS: CALCIUM 8.3 mg/dL (8.5-10.1); CREATININE 1.3 mg/dL (0.6-1.0); POTASSIUM 4.8 mmol/L (3.5-5.1)
[2017-05-23 07:36] LABS: HEMATOCRIT 23.3 % (37.0-47.0); HEMOGLOBIN 7.6 gm/dL (12.0-15.0); MCHC 32.6 g/dL (28.0-37.0); MCV 82.9 fL (80.0-100.0); RBC 2.82 mil/uL (4.20-5.00); RDW 16.2 % (10.5-14.5); WBC 10.3 thou/uL (4.0-11.0)
[2017-05-23] MEDS ORDERED: CHLORDIAZEPOXI1 EAC1 PO (15:24)
[2017-05-23] MEDS ORDERED: NAMENDA XR28 MG PO (15:30)
[2017-05-23] MEDS ORDERED: TRAMADOL 50 MG50 MG PO (15:30)
[2017-05-23] MEDS ORDERED: TYLENOL325 MG PO (15:31)
[2017-05-23] MEDS ORDERED: XANAX 0.5 MG0.5 MG PO (15:32)
[2017-05-23] MEDS ORDERED: ZOLOFT25 MG PO (15:33)
[2017-05-23 20:09] LABS: HEMOGLOBIN 7.2 gm/dL (12.0-15.0)
[2017-05-24] VITALS (9 sets, daily range): BP systolic 102–178; BP diastolic 74–107
[2017-05-24 01:21] LABS: HEMATOCRIT 21.7 % (37.0-47.0); HEMOGLOBIN 7.1 gm/dL (12.0-15.0)
[2017-05-24 07:49] LABS: HEMATOCRIT 20.6 % (37.0-47.0); MCH 27.2 pg (26.0-34.0)
[2017-05-24 07:51] LABS: HEMOGLOBIN 6.7 gm/dL (12.0-15.0); MCHC 32.5 g/dL (28.0-37.0); MCV 83.8 fL (80.0-100.0); RBC 2.46 mil/uL (4.20-5.00); RDW 16.3 % (10.5-14.5); WBC 8.6 thou/uL (4.0-11.0)
[2017-05-24 07:57] LABS: ALBUMIN 2.9 g/dL (3.4-5.0); CALCIUM 7.8 mg/dL (8.5-10.1); POTASSIUM 3.9 mmol/L (3.5-5.1); TOTAL BILIRUBIN 0.3 mg/dL (<0.1-1.0); TOTAL PROTEIN 5.8 g/dL (6.4-8.2)
[2017-05-24 18:48] LABS: HEMATOCRIT 19.9 % (37.0-47.0)
[2017-05-24 18:50] LABS: HEMOGLOBIN 6.5 gm/dL (12.0-15.0)
[2017-05-25 00:03] LABS: HEMOGLOBIN 6.8 gm/dL (12.0-15.0)
[2017-05-25 00:04] LABS: HEMATOCRIT 21.1 % (37.0-47.0)
[2017-05-25 05:47] LABS: RBC 2.32 mil/uL (4.20-5.00); RDW 16.6 % (10.5-14.5)
[2017-05-25 05:49] LABS: MCH 27.3 pg (26.0-34.0); MCHC 32.5 g/dL (28.0-37.0); MCV 84.1 fL (80.0-100.0); WBC 7.3 thou/uL (4.0-11.0)
[2017-05-25 05:51] LABS: HEMATOCRIT 19.5 % (37.0-47.0); HEMOGLOBIN 6.3 gm/dL (12.0-15.0)
[2017-05-25 06:08] LABS: ALBUMIN 2.7 g/dL (3.4-5.0); CREATININE 0.7 mg/dL (0.6-1.0); POTASSIUM 3.8 mmol/L (3.5-5.1); TOTAL BILIRUBIN 0.3 mg/dL (<0.1-1.0); TOTAL PROTEIN 5.6 g/dL (6.4-8.2)
[2017-05-25 10:29] VITALS: BP 131/66; BP 135/87
[2017-05-25 12:59] LABS: HEMATOCRIT 20.6 % (37.0-47.0)
[2017-05-25 13:00] LABS: HEMOGLOBIN 6.7 gm/dL (12.0-15.0)
[2017-05-25 18:02] LABS: HEMATOCRIT 24.9 % (37.0-47.0); HEMOGLOBIN 8.2 gm/dL (12.0-15.0)
[2017-05-25 20:00] VITALS: BP 159/84
[2017-05-25 23:57] LABS: HEMATOCRIT 21.8 % (37.0-47.0); HEMOGLOBIN 7.2 gm/dL (12.0-15.0)
[2017-05-26 03:44] LABS: ABSOLUTE NEUTROPHILS 6.1 thou/uL (1.4-8.2); BASOPHILS 0.6 % (0.0-2.0); EOSINOPHILS 2.2 % (0.0-3.0); HEMATOCRIT 21.6 % (37.0-47.0); LYMPHOCYTES 12.2 % (24.0-44.0); MCH 27.4 pg (26.0-34.0); MCHC 32.4 g/dL (28.0-37.0); MCV 84.5 fL (80.0-100.0); MONOCYTES 9.2 % (1.0-8.0); PLATELET COUNT 182 thou/uL (150-400); POLYS 75.8 % (36.0-66.0); RBC 2.56 mil/uL (4.20-5.00); RDW 16.2 % (10.5-14.5); WBC 8.1 thou/uL (4.0-11.0)
[2017-05-26 03:45] LABS: MANUAL DIFF NO
[2017-05-26 03:53] LABS: CALCIUM 7.8 mg/dL (8.5-10.1); CREATININE 0.6 mg/dL (0.6-1.0); MAGNESIUM 1.5 mg/dL (1.8-2.4); POTASSIUM 3.6 mmol/L (3.5-5.1)
[2017-05-26 08:24] VITALS: BP 132/81
[2017-05-26 16:33] VITALS: BP 151/83
[2017-05-26 20:00] VITALS: BP 182/102
[2017-05-27 03:16] VITALS: BP 122/65
[2017-05-27 07:30] LABS: ABSOLUTE NEUTROPHILS 6.5 thou/uL (1.4-8.2); BASOPHILS 0.4 % (0.0-2.0); HEMOGLOBIN 7.6 gm/dL (12.0-15.0); PLATELET COUNT 211 thou/uL (150-400); RDW 16.5 % (10.5-14.5); WBC 8.6 thou/uL (4.0-11.0)
[2017-05-27 07:31] LABS: EOSINOPHILS 1.9 % (0.0-3.0); HEMATOCRIT 22.2 % (37.0-47.0); LYMPHOCYTES 11.1 % (24.0-44.0); MCH 28.6 pg (26.0-34.0); MCHC 34.4 g/dL (28.0-37.0); MCV 83.2 fL (80.0-100.0); MONOCYTES 11.3 % (1.0-8.0); POLYS 75.3 % (36.0-66.0); RBC 2.66 mil/uL (4.20-5.00)
[2017-05-27 07:34] LABS: MANUAL DIFF NO
[2017-05-27 07:41] LABS: CALCIUM 8.1 mg/dL (8.5-10.1); CREATININE 0.7 mg/dL (0.6-1.0); POTASSIUM 3.6 mmol/L (3.5-5.1)
[2017-05-27 08:40] VITALS: BP 142/88
[2017-05-27 11:29] VITALS: BP 131/79
[2017-05-27 14:22] LABS: TSH 0.982 uIU/mL (0.358-3.740)
[2017-05-27 20:00] VITALS: BP 141/81
[2017-05-28 09:01] LABS: ABSOLUTE NEUTROPHILS 4.2 thou/uL (1.4-8.2); BASOPHILS 0.5 % (0.0-2.0); HEMATOCRIT 22.5 % (37.0-47.0); HEMOGLOBIN 7.3 gm/dL (12.0-15.0); LYMPHOCYTES 12.5 % (24.0-44.0); MCH 27.5 pg (26.0-34.0); MCHC 32.6 g/dL (28.0-37.0); MCV 84.2 fL (80.0-100.0); PLATELET COUNT 203 thou/uL (150-400); RBC 2.68 mil/uL (4.20-5.00); WBC 5.7 thou/uL (4.0-11.0)
[2017-05-28 09:02] LABS: MANUAL DIFF NO
[2017-05-28 09:24] LABS: CALCIUM 7.9 mg/dL (8.5-10.1); CREATININE 0.7 mg/dL (0.6-1.0); MAGNESIUM 1.6 mg/dL (1.8-2.4); POTASSIUM 3.3 mmol/L (3.5-5.1)
[2017-05-28] MEDS ORDERED: TRAMADOL 50 MG50 MG PO (12:00)
== END 2017-05-28 16:21 | DRG 377 ==
LOC: ER 18:16 → EROBS 20:19 → ICU 20:19 → EROBS 20:38 → ICU 21:20 → 4E 05-26 07:22
PROVIDERS: Hospitalist; Internal Medicine; Nurse Practitioner; Nurse Practitioner Family; Specialist
PROC: 0DJ08ZZ Inspection of Upper Intestinal Tract, Via Natural or Artificial Opening Endoscopic (ICD-10-PCS; principal; 2017-05-24)
PROC: 30233N1 Transfusion of Nonautologous Red Blood Cells into Peripheral Vein, Percutaneous Approach (ICD-10-PCS; 2017-05-25)
DX: K92.2 Gastrointestinal hemorrhage, unspecified (principal); N17.0 Acute kidney failure with tubular necrosis; D68.9 Coagulation defect, unspecified; D62 Acute posthemorrhagic anemia; N18.9 Chronic kidney disease, unspecified; I10 Essential (primary) hypertension; Z96.653 Presence of artificial knee joint, bilateral; M81.0 Age-related osteoporosis without current pathological fracture; F32.9 Major depressive disorder, single episode, unspecified; M19.90 Unspecified osteoarthritis, unspecified site; G89.29 Other chronic pain; M25.552 Pain in left hip; S09.90XA Unspecified injury of head, initial encounter; K20.9 Esophagitis, unspecified; K22.70 Barrett's esophagus without dysplasia; K31.9 Disease of stomach and duodenum, unspecified; D63.8 Anemia in other chronic diseases classified elsewhere; E86.1 Hypovolemia; D72.829 Elevated white blood cell count, unspecified; F03.90 Unspecified dementia, unspecified severity, without behavioral disturbance, psychotic disturbance, mood disturbance, and anxiety; I48.2 Chronic atrial fibrillation; K25.9 Gastric ulcer, unspecified as acute or chronic, without hemorrhage or perforation; F41.9 Anxiety disorder, unspecified; E83.42 Hypomagnesemia; S01.81XA Laceration without foreign body of other part of head, initial encounter; Z79.82 Long term (current) use of aspirin; Z98.42 Cataract extraction status, left eye; Z98.41 Cataract extraction status, right eye; Z90.710 Acquired absence of both cervix and uterus; Z90.49 Acquired absence of other specified parts of digestive tract; K90.0 Celiac disease; Z79.899 Other long term (current) drug therapy; Z88.6 Allergy status to analgesic agent; Z88.8 Allergy status to other drugs, medicaments and biological substances; Z87.11 Personal history of peptic ulcer disease; Z87.891 Personal history of nicotine dependence; X58.XXXA Exposure to other specified factors, initial encounter; Y93.89 Activity, other specified; Y92.89 Other specified places as the place of occurrence of the external cause; Y99.8 Other external cause status
CPT/HCPCS: 10078; 10783; 62110; 62900

== ENCOUNTER 2017-12-11 10:29 | Inpatient (IN) | payer OTHER, BC ==
[~2017-12-11] VITALS: Ht 162.6 cm; Wt 64.4 kg
--- NOTE | ~2017-12-11 | S ---
[facility] [address] [place] [address] SURGICAL PATH RPT PROCEDURE Name: NOVA MAURICE Room #: 360-P DIS IN M.R.#: [id number] Admission: 12/11/17 Date of : 31 Discharge: 12/15/17 Report #: [id number] Path Case #: [id number] PATHOLOGY REPORT COLLECTION DATE: 12/14/2017 RECEIVED DATE: 12/14/2017 SUBMITTING PHYS: Dr. Markell James OTHER PHYS: Dr. Evelina Lama ADDENDUM REPORT (Order Date: 12/17/2017 10:52) ADDENDUM COMMENT: A properly controlled immunohistochemical stain is performed. H. pylori (Block A1): Negative for organisms. The final diagnosis remains unchanged. (CLW:[place]; 12/17/2017) Professional services performed by [facility] at [facility] [address] [place] [address] Technical services performed by [facility] at [address] [place] [address], [address] [place] [address]. ELECTRONICALLY SIGNED BY: Nayana Pavon M.D. DATE/TIME:12/17/2017 22:23 SPECIMEN(S) RECEIVED: A.Bx distal esophagus * * * * * * * * * * * * FINAL DIAGNOSIS: Tissue submitted as "Bx distal esophagus", biopsy: - Gastric mucosa with reactive and regenerative changes, mild predominantly chronic inflammation and focal detached fibrinous debris. - H. pylori stain pending and will be reported as an addendum (CLW:[place]; 12/16/2017) COMMENT: The tissue was submitted as "Bx distal esophagus". Gastric cardiac and antral type mucosa appears similar histologically. Per the OP note, the gastric ulcer was located in the gastric antrum; therefore, this is likely a gastric antral biopsy. Again, an H. pylori stain is pending and will be reported as an addendum. No dysplasia is seen. (CLW:[place]ana; 12/16/2017) [address] [address] SURGICAL PATH RPT PROCEDURE Name: NOVA MAURICE Room #: 360-P [facility] IN M.R.#: [id number] Admission: 12/11/17 Date of : 31 Discharge: 12/15/17 Report #: [id number] Path Case #: [id number] PATHOLOGIST: Nayana Pavon M.D. REPORT ELECTRONICALLY SIGNED BY: Nayana Pavon M.D. DATE/TIME: 12/16/2017 15:54 * * * * * * * * * * * * GROSS PATHOLOGY: Received in formalin labeled "Novamarcus Maurice, and Bx distal esophagus" are four segments of morales soft tissue measuring 1.0 x 1.0 x 0.2 cm in aggregate dimensions and ranging from 0.3 to 0.6 cm in maximum dimension. The specimen is submitted entirely in cassette A1. (CAA; 12/16/2017) CLINICAL HISTORY: Pre-op diagnosis: Anemia Post-op diagnosis: Gastric ulcer R/O H. pylori INITIAL CPT CODE(S): A; 65671, 47512 Professional services performed by [facility] at [facility] [address] [place] [address] Technical services performed by [facility] at [address] [place] [address], [address], [place] [address]. [facility] [address] [place] [address] PHONE: [phone] DIRECTOR: Guido Conklin M.D. * * * END OF REPORT * * *
--- NOTE | ~2017-12-11 | EKG ---
[address] [address] ELECTROCARDIOGRAM REPORT Name: NOVA MAURICE Room #: 170-12 ADM IN M.R.#: [id number] Admission: 12/11/17 Attend Phys: Evelina Grover Discharge: Date of : 31 Report #: [id number] THIS REPORT FOR: //name// [facility] ED Test Date: 2017-12-11 Test Time: 10:39:18 Pat Name: NOVA MAURICE Department: Room: 170 Gender: F Vice President Of Customer Service: KRISTYN : 1930 Requested By: Trent Hernandez Order Number: [id number] MD: Art Banegas Measurements Intervals [place] Rate: 99 P: MD: QRS: 13 QRSD: 80 T: 0 QT: 338 QTc: 434 Interpretive Statements Atrial fibrillation Probable anteroseptal infarct, old Compared to ECG 05/22/2017 18:18:04 Myocardial infarct finding now present Electronically Signed On 12-11-2017 14:00:55 CDT by Art Banegas [email or web address] <ELECTRONICALLY SIGNED> By: Art Banegas MD 12/11/17 1400 1039 38 Art Banegas MD /DEBRA
--- NOTE | ~2017-12-11 | P ---
[facility] [place] [address] PROCEDURE REPORT Name: NOVA MAURICE Room #: 360-P [facility] IN M.R.#: [id number] Admission: 12/11/17 Attend Phys: Evelina Grover Discharge: Date of : 31 Report #: [id number] THIS REPORT FOR: //name// CC: Evelina Lama DATE OF SERVICE: 12/14/2017 PROCEDURE PERFORMED: Upper endoscopy with biopsies. HISTORY OF PRESENT ILLNESS: The patient is an 87-year-old female with a syncopal episode and melanotic type stools, have been on aspirin and Plavix. This has now been held over the last several days. She was transfused. Plan is for EGD. 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 They understood these risks and gave informed consent. Sedation was given using propofol per anesthesia. Next, using a standard [place] upper endoscope, the scope was placed in the patient's mouth and advanced under direct vision through the esophagus, stomach and into the second portion of the duodenum. The larynx was normal in appearance. The esophagus was normal throughout. The GE junction was normal. Overall, the gastric mucosa was normal in the fundus and upper body; however, in the lower body near the antrum, there was a single ulceration with surrounding erythema. There was no visible vessel or bleeding. The ulcer was approximately 5 mm in size, clean white base, but then again had some mild surrounding erythema. No other ulcerations were noted. Biopsies were obtained to rule out H. pylori. The pylorus was normal and patent. The duodenal bulb, first and second portion were all normal. The scope was then withdrawn and the procedure terminated. The patient tolerated the procedure well. IMPRESSION: 1. Single gastric ulcer, likely source of recent melanotic stools. 2. Otherwise, normal upper endoscopy. RECOMMENDATIONS: 1. We will switch from Protonix drip to Protonix 40 mg p.o. every day. 2. We will add Carafate at this time. 3. Await biopsy results. 4. Regular diet. [address] [address] PROCEDURE REPORT Name: NOVA MAURICE Room #: 360-P [facility] IN .R.#: [id number] Admission: 12/11/17 Attend Phys: Evelina Grover Discharge: Date of : 31 Report #: [id number] Thank you for allowing me to participate in her care. <ELECTRONICALLY SIGNED> By: Markell James MD 12/15/17 0809 1200 592 Markell James MD /nt
[~2017-12-11 10:29] MED LIST changes: +NAMENDA XR28 MG PO; +TYLENOL325 MG PO; +XANAX 0.5 MG0.5 MG PO; +ZOLOFT25 MG PO
[2017-12-11 10:30] VITALS: BP 85/41
[2017-12-11 11:10] LABS: BASOPHILS 0.4 % (0.0-2.0); EOSINOPHILS 0.1 % (0.0-3.0); HEMATOCRIT 23.4 % (37.0-47.0); HEMOGLOBIN 7.5 gm/dL (12.0-15.0); LYMPHOCYTES 4.9 % (24.0-44.0); MCH 24.7 pg (26.0-34.0); MCHC 32.1 g/dL (28.0-37.0); MONOCYTES 4.9 % (1.0-8.0); PLATELET COUNT 294 thou/uL (150-400); POLYS 89.7 % (36.0-66.0); RBC 3.04 mil/uL (4.20-5.00); RDW 19.1 % (10.5-14.5); WBC 12.3 thou/uL (4.0-11.0)
[2017-12-11 11:20] LABS: ANION GAP 10 mmol/L (7-16); BUN 74 mg/dL (7-18); CALCIUM 8.7 mg/dL (8.5-10.1); CHLORIDE 96 mmol/L (98-107); CO2 22 mmol/L (21-32); CREATININE 1.5 mg/dL (0.6-1.0); GLUCOSE 108 mg/dL (74-106); POTASSIUM 5.2 mmol/L (3.5-5.1); SODIUM 128 mmol/L (136-145)
[2017-12-11 11:27] LABS: URINE BILIRUBIN NEGATIVE (Negative); URINE BLOOD NEGATIVE (Negative); URINE CLARITY CLEAR; URINE COLOR YELLOW; URINE GLUCOSE-RANDOM* NEGATIVE (Negative); URINE KETONES NEGATIVE (Negative); URINE LEUKOCYTES-REFLEX NEGATIVE (Negative); URINE NITRITE-REFLEX NEGATIVE (Negative); URINE PROTEIN (DIPSTICK) NEGATIVE (Negative); URINE UROBILINOGEN 0.2 E.U./dl (0.2-1.0)
[2017-12-11 11:27] LABS: ALBUMIN 3.3 g/dL (3.4-5.0); SGOT 24 U/L (15-37); SGPT 29 U/L (30-65); TOTAL BILIRUBIN 0.3 mg/dL (<0.1-1.0); TOTAL PROTEIN 6.5 g/dL (6.4-8.2); TROPONIN-I < 0.04 ng/mL (<0.06)
[2017-12-11 12:18] LABS: OBSERVED RETIC COUNT 2.32 % (0.6-2.6)
[2017-12-11 12:34] VITALS: BP 110/47
[2017-12-11 12:53] VITALS: BP 92/46
[2017-12-11 12:59] LABS: % SATURATION 20 % (20-39); IRON 78 ug/dL (50-170); TIBC 389 ug/dL (250-450)
[2017-12-11 16:11] VITALS: BP 119/66
[2017-12-11 18:11] LABS: HEMATOCRIT 19.6 % (37.0-47.0)
[2017-12-11 18:12] LABS: HEMOGLOBIN 6.3 gm/dL (12.0-15.0)
[2017-12-11 19:40] VITALS: BP 116/68
[2017-12-11 23:42] LABS: HEMATOCRIT 17.6 % (37.0-47.0); HEMOGLOBIN 5.6 gm/dL (12.0-15.0)
[2017-12-12] VITALS (7 sets, daily range): BP systolic 104–148; BP diastolic 54–84
[2017-12-12 07:04] LABS: MCV 77.5 fL (80.0-100.0)
[2017-12-12 07:05] LABS: MCHC 32.2 g/dL (28.0-37.0); RBC 2.1 mil/uL (4.20-5.00); RDW 18.9 % (10.5-14.5); WBC 12.7 thou/uL (4.0-11.0)
[2017-12-12 07:20] LABS: HEMATOCRIT 16.3 % (37.0-47.0); HEMOGLOBIN 5.2 gm/dL (12.0-15.0)
[2017-12-12 07:28] LABS: ALBUMIN 2.8 g/dL (3.4-5.0); ANION GAP 10 mmol/L (7-16); BUN 83 mg/dL (7-18); CALCIUM 8.1 mg/dL (8.5-10.1); CHLORIDE 105 mmol/L (98-107); CO2 19 mmol/L (21-32); CREATININE 1.4 mg/dL (0.6-1.0); GLUCOSE 135 mg/dL (74-106); PHOSPHORUS 3.9 mg/dL (2.5-4.9); POTASSIUM 4.7 mmol/L (3.5-5.1); SODIUM 134 mmol/L (136-145); TROPONIN-I < 0.04 ng/mL (<0.06)
[2017-12-12 19:03] LABS: HEMATOCRIT 20.4 % (37.0-47.0)
[2017-12-13 03:34] VITALS: BP 98/50
[2017-12-13 07:48] LABS: HEMATOCRIT 20.8 % (37.0-47.0); MCH 28.1 pg (26.0-34.0); MCHC 33.7 g/dL (28.0-37.0); RBC 2.49 mil/uL (4.20-5.00); RDW 19.5 % (10.5-14.5); WBC 7.3 thou/uL (4.0-11.0)
[2017-12-13 07:50] LABS: MCV 83.3 fL (80.0-100.0)
[2017-12-13 07:58] LABS: CREATININE 1.1 mg/dL (0.6-1.0); POTASSIUM 4.1 mmol/L (3.5-5.1)
[2017-12-13 07:59] VITALS: BP 119/64
[2017-12-13 12:00] VITALS: BP 124/65
[2017-12-13 15:25] VITALS: BP 109/69
[2017-12-13 16:15] VITALS: BP 121/75; BP 136/75
[2017-12-13 19:23] VITALS: BP 121/75
[2017-12-14 05:50] LABS: ABSOLUTE NEUTROPHILS 5.2 thou/uL (1.4-8.2); BASOPHILS 0.7 % (0.0-2.0); EOSINOPHILS 1.7 % (0.0-3.0); HEMATOCRIT 21.9 % (37.0-47.0); HEMOGLOBIN 7.5 gm/dL (12.0-15.0); LYMPHOCYTES 12.4 % (24.0-44.0); MCH 28.9 pg (26.0-34.0); MCHC 34.3 g/dL (28.0-37.0); MCV 84.3 fL (80.0-100.0); MONOCYTES 8.1 % (1.0-8.0); PLATELET COUNT 183 thou/uL (150-400); POLYS 77.1 % (36.0-66.0); RBC 2.59 mil/uL (4.20-5.00); RDW 18.5 % (10.5-14.5); WBC 6.7 thou/uL (4.0-11.0)
[2017-12-14 06:05] LABS: CALCIUM 7.8 mg/dL (8.5-10.1); CREATININE 0.9 mg/dL (0.6-1.0); MAGNESIUM 1.8 mg/dL (1.8-2.4); POTASSIUM 3.5 mmol/L (3.5-5.1)
[2017-12-14 08:10] VITALS: BP 154/98
[2017-12-14 18:27] VITALS: BP 145/72
[2017-12-14 21:00] VITALS: BP 150/73
[2017-12-15 05:10] VITALS: BP 130/66
[2017-12-15 07:45] LABS: ABSOLUTE NEUTROPHILS 10.7 thou/uL (1.4-8.2); BASOPHILS 0.3 % (0.0-2.0); EOSINOPHILS 0.2 % (0.0-3.0); HEMATOCRIT 24.1 % (37.0-47.0); HEMOGLOBIN 8.2 gm/dL (12.0-15.0); LYMPHOCYTES 5.2 % (24.0-44.0); MCH 28.6 pg (26.0-34.0); MONOCYTES 7.8 % (1.0-8.0); PLATELET COUNT 206 thou/uL (150-400); POLYS 86.5 % (36.0-66.0); RBC 2.86 mil/uL (4.20-5.00); RDW 18.9 % (10.5-14.5); WBC 12.4 thou/uL (4.0-11.0)
[2017-12-15 07:58] LABS: CREATININE 0.8 mg/dL (0.6-1.0); MAGNESIUM 1.2 mg/dL (1.8-2.4)
[2017-12-15 08:36] VITALS: BP 140/99
[2017-12-15 13:01] VITALS: BP 142/89
[2017-12-15] MEDS ORDERED: FLOMAX0.4 MG PO (14:31)
[2017-12-15] MEDS ORDERED: PROTONIX40 M1 PO (14:32)
[2017-12-15] MEDS ORDERED: CARAFATE 1 GM TA1 GM PO (14:32)
[2017-12-15 15:42] LABS: URINE BILIRUBIN NEGATIVE (Negative); URINE BLOOD TRACE (Negative); URINE CLARITY CLEAR; URINE COLOR YELLOW; URINE GLUCOSE-RANDOM* NEGATIVE (Negative); URINE KETONES 1+ (Negative); URINE LEUKOCYTES-REFLEX NEGATIVE (Negative); URINE NITRITE-REFLEX NEGATIVE (Negative); URINE PROTEIN (DIPSTICK) NEGATIVE (Negative); URINE SPECIFIC GRAVITY 1.025 (1.005-1.035); URINE UROBILINOGEN 0.2 E.U./dl (0.2-1.0)
[2017-12-15 15:49] LABS: MAGNESIUM 1.9 mg/dL (1.8-2.4); POTASSIUM 3.7 mmol/L (3.5-5.1)
== END 2017-12-15 17:54 | DRG 377 ==
LOC: ER 10:29 → EROBS 11:53 → 3W 11:53
PROVIDERS: Emergency Medicine; Hospitalist; Internal Medicine; Internal Medicine Gastroenterology; Nurse Practitioner Acute Care
DX: K29.71 Gastritis, unspecified, with bleeding (principal); G93.41 Metabolic encephalopathy; D62 Acute posthemorrhagic anemia; N17.9 Acute kidney failure, unspecified; K25.4 Chronic or unspecified gastric ulcer with hemorrhage; Z96.653 Presence of artificial knee joint, bilateral; I48.91 Unspecified atrial fibrillation; M81.0 Age-related osteoporosis without current pathological fracture; F03.90 Unspecified dementia, unspecified severity, without behavioral disturbance, psychotic disturbance, mood disturbance, and anxiety; I12.9 Hypertensive chronic kidney disease with stage 1 through stage 4 chronic kidney disease, or unspecified chronic kidney disease; K90.0 Celiac disease; I95.9 Hypotension, unspecified; K57.91 Diverticulosis of intestine, part unspecified, without perforation or abscess with bleeding; R33.9 Retention of urine, unspecified; F32.9 Major depressive disorder, single episode, unspecified; H91.90 Unspecified hearing loss, unspecified ear; E86.0 Dehydration; N18.9 Chronic kidney disease, unspecified; Z87.81 Personal history of (healed) traumatic fracture; Z98.42 Cataract extraction status, left eye; Z98.41 Cataract extraction status, right eye; Z90.710 Acquired absence of both cervix and uterus; Z90.49 Acquired absence of other specified parts of digestive tract; Z79.82 Long term (current) use of aspirin; Z79.899 Other long term (current) drug therapy; Z87.891 Personal history of nicotine dependence; Z88.5 Allergy status to narcotic agent; Z88.8 Allergy status to other drugs, medicaments and biological substances
CPT/HCPCS: 10879; 62110; 62900; 70005